=== PATIENT | male | born 1940 | race Asian ===

== ENCOUNTER 2018-06-24 19:24 | Inpatient (IN) | payer OTHER ==
[~2018-06-24] VITALS: Ht 162.6 cm; Wt 63.5 kg
--- NOTE | 2018-06-24 19:27 | NUR ---
PT VENECIA ALS. TAKEN TO BED 10
--- NOTE | 2018-06-24 19:27 | NUR ---
Respiratory Therapist at bedside for respiratory intervention.
[2018-06-24 19:35] VITALS: BP 107/69
[2018-06-24 19:40] VITALS: BP 107/69
--- NOTE | 2018-06-24 19:45 | NUR ---
BIBA WITH C/O FALL FROM BED AT 4AM. PATIENT CHRONIC TRACH TO VENT. PATEINT NON VERBAL, RESPONSIVE TO PAIN, SPONTANEOUS EYE OPENING. SENT BY CEC TO RULE OUT BRAIN BLEED. 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
--- NOTE | 2018-06-24 19:47 | NUR ---
PT TAKEN TO CT WITH RN, WELDER/FABRICATOR, AND RT
--- NOTE | 2018-06-24 19:50 | NUR ---
PT VENECIA STARTED ON VENTILATOR SETTING FROM HIS FACILITY AC/14/450/30%/+5. AT [address] WITH NO INCIDENT AND AT 1949 TRANSFERRED BACK TO ER BED 10 WITHOUT INCIDENT. VENTILATOR PLUGGED INTO RED OUTLETS BVM AT BEDSIDE AIRWAY SHILEY 6XLT SECURE AND PATENT.
--- NOTE | 2018-06-24 19:59 | NUR ---
PT RETURN FROM CT
[2018-06-24] MEDS ORDERED: NACL 0.9% 1,000 ML IV ONE (20:00)
--- NOTE | 2018-06-24 20:04 | NUR ---
X-Ray at bedside.
[2018-06-24 20:42] LABS: BASOPHILS % (AUTO) 0.4 % (0.0-2.0); EOSINOPHILS # (AUTO) 0.1 K/uL (0-0.4); EOSINOPHILS % (AUTO) 1.3 % (0.0-4.0); HEMATOCRIT 28.3 % (36-52); HEMOGLOBIN 9.3 g/dL (12.0-18.0); LYMPHOCYTES # (AUTO) 1.4 K/uL (2.0-11.5); LYMPHOCYTES % (AUTO) 20.8 % (20.5-51.1); MEAN CORPUSCULAR HEMOGLOBIN 27 pg (27-31); MEAN CORPUSCULAR HGB CONC 33 g/dL (33-37); MEAN CORPUSCULAR VOLUME 83.4 fL (80-94); MONOCYTES # (AUTO) 0.5 K/uL (0.8-1.0); MONOCYTES % (AUTO) 7.8 % (1.7-9.3); NEUTROPHILS # (AUTO) 4.6 K/uL (1.8-7.7); NEUTROPHILS % (AUTO) 69.7 % (42.2-75.2); PLATELET COUNT (AUTO) 260 K/uL (140-450); RED CELL DISTRIBUTION WIDTH 14.4 % (11.6-13.7); WHITE BLOOD COUNT (AUTO) 6.6 K/uL (4.8-10.8)
[2018-06-24 20:44] LABS: APPEARANCE,URINE CLEAR (CLEAR); BILIRUBIN,URINE NEGATIVE (NEGATIVE); BLOOD, URINE NEGATIVE (NEGATIVE); COLOR,URINE YELLOW (YELLOW); LEUKOCYTE ESTERASE ,URINE 3+ (NEGATIVE); NITRITE, URINE POSITIVE (NEGATIVE); PH,URINE 8.5 (5.0-9.0); UGLUCOSE NEGATIVE (NEGATIVE)
[2018-06-24 20:55] LABS: RBC,URINE 0-5 /HPF (0-5); WBC,URINE >25 (MANY) /HPF (0-5)
[2018-06-24] MEDS ORDERED: LEVOFLOXACIN 500 MG/D5W PREMIX 100 ML IV ONE (20:55)
[2018-06-24] MEDS ORDERED: PIPERACILLIN/TAZOBACTAM 3.375 GM in DEXTROSE 5% 50 ML IV ONE (20:55)
[2018-06-24 21:01] LABS: ALBUMIN 2.6 g/dL (3.4-5.0); ANION GAP 7.2 (8-16); ASPARTATE AMINOTRANSFERASE 27 U/L (15-37); CARBON DIOXIDE 27.3 mmol/L (21-32); CHLORIDE 91 mmol/L (98-107); GLUCOSE 83 mg/dL (74-106); POTASSIUM 5.5 mmol/L (3.5-5.1); TOTAL BILIRUBIN 0.3 mg/dL (0.0-1.0); UREA NITROGEN, BLOOD 35 mg/dL (7-18)
[2018-06-24 21:03] LABS: PROTHROMBIN TIME 10.3 secs (10.8-13.4)
--- NOTE | 2018-06-24 21:07 | NUR ---
Dr. Cole evaluating patient at bedside.
--- NOTE | 2018-06-24 21:08 | NUR ---
SON AND DAUGHTER AT BEDSIDE. DR BRUNO SPEAKING WITH THEM
[2018-06-24 21:12] LABS: SODIUM SERUM 120 mmol/L (136-145)
[2018-06-24] MEDS ORDERED: PIPERACILLIN/TAZOBACTAM 3.375 GM VIAL IV ONE (21:13)
[2018-06-24] MEDS ORDERED: NACL 0.9% 1,500 ML IV ONE (21:15)
[2018-06-24] MEDS ORDERED: IPRATROPIUM 0.02% 0.5 MG/2.5 ML NEBU INH PRN (21:55)
[2018-06-24] MEDS ORDERED: MORPHINE SULFATE 2 MG/ML SYR IVP PRN (21:55)
[2018-06-24] MEDS ORDERED: MAGNESIUM OXIDE 400 MG TAB PO PRN (21:55)
[2018-06-24] MEDS ORDERED: ONDANSETRON 4 MG/2 ML VIAL IVP PRN (21:55)
[2018-06-24] MEDS ORDERED: ALBUTEROL 0.083% 2.5 MG/3 ML NEBU INH PRN (21:55)
[2018-06-24] MEDS ORDERED: ACETAMINOPHEN 325 MG TAB PO PRN (21:55)
[2018-06-24] MEDS ORDERED: POTASSIUM CHLORIDE 10 MEQ TABER PO PRN (21:55)
[2018-06-24] MEDS ORDERED: ACETAMINOPHEN 650 MG SUPP RC PRN (21:55)
[2018-06-24] MEDS ORDERED: POTASSIUM CHLORIDE 40 MEQ, LIDOCAINE 1% 25 MG in NACL 0.9% 250 ML IV PRN (21:55)
[2018-06-24] MEDS ORDERED: MAG SULF 2000 MG/WATER PREMIX 50 ML IV PRN (21:55)
[2018-06-24 22:00] VITALS: BP 144/98
--- NOTE | 2018-06-24 22:00 | NUR ---
RECEIVED PT FROM ER VIA GURNEY.TRANSFERRED TO ICU BED 8.MONITORS ATTACHED.NSR ON MONITOR.PT OPENS EYES.NOT TRACKING.DOES NOT FOLLOW COMMANDS.TRACH TO VENT FIO3 30% TV 450 AC 14 PEEP 5.INTERMITTENT PRODUCTIVE COUGHING NOTED.MODERATE AMT OF CLEAR THICK SECRETIONS SUCTIONED.WITH GTUBE ALREADY IN PLACE.FLUSHED.CLAMPED.PERIPHERAL IV TO LT F/A G20 INTACT INFUSING NS AT 100ML/HR FROM ER AND LEVAQUIN.ALL EXTREMITIES WITH ABNORMAL FLEXION NOTED.OLD SCAR TO SACROCOCCYGEAL AND RT HEEL ALSO NOTED.WITH TOLENTINO CATHETER TO BSD DRAINING YELLOW URINE WITH SEDIMENTS.FLACC 0
--- NOTE | 2018-06-24 22:05 | NUR ---
PT TRANSPORTED TO ICU BED 8 WITHOUT INCIDENT. VENT PLUGGED INTO RED OUTLET BVM AT BEDSIDE ALARMS SET AND AUDIBLE.
--- NOTE | 2018-06-24 22:05 | NUR ---
PATEINT TAKEN IN [facility] ESCORTED BY EMT, RN, AND RT. STABLE DURING TRANSFER. TAKEN TO ICU-8, UNDER CARE OF DR. VELASQUEZ. REPORT GIVEN TO KAYLA.
--- NOTE | 2018-06-24 22:40 | NUR ---
PHONE CALL TO PTS MARCOS ARMAS; UPDATED ON PTS PRESENT CONDITION.CLARIFIED CODE STATUS.PT HAS POLST DNR BUT ON REPORT FROM ER NURSE CALLI, ITS MODIFIED CODE.CELINE ARMAS SAID PT IS DNR.
[2018-06-24] MEDS: DEXT 5% / NACL 0.45% 1,000 ML IV SCH (23:00)
--- NOTE | 2018-06-24 23:00 | NUR ---
IVF CHANGED TO D5 /12NS AT [address] HONG.
[2018-06-24 23:21] VITALS: BP 127/75
[2018-06-25] VITALS (24 sets, daily range): BP systolic 114–217; BP diastolic 76–113
--- NOTE | 2018-06-25 | NUR ---
ORAL CARE USING VAP KIT RENDERED.WILL F/U WITH MD PAYNE;DVT AND GI PROPHYLAXIS IN AM. PT AWAKE.NSR.SECRETIONS SUCTIONED.ABLE TO SUCTION THICK CLEAR SECRETIONS. PER TRACH/ORAL.FLACC 0.REPOSITIONED.
[2018-06-25] MEDS ORDERED: PIPERACILLIN/TAZOBACTAM 3.375 GM VIAL IV ONE (02:15)
--- NOTE | 2018-06-25 03:03 | NUR ---
PT APPEARS ASLEEP; TOLENTINO CATHETER INTACT WITH YELLOW URINE WITH SEDIMENTS.IV ANTIBIOTIC FOR UTI ORDERED/GIVEN.FLACC 0
[2018-06-25] MEDS: PIPER/TAZO 3.375GM/D5W PREMIX 50 ML IV SCH ×3 (05:00→20:50)
--- NOTE | 2018-06-25 05:36 | NUR ---
MORNING CARE DONE.ORAL CARE COMPLETED.PT TOLERATING ADL'S.NO SOB NOTED.FLACC 0.REPOSITIONED.
--- NOTE | 2018-06-25 05:51 | NUR ---
BS CHECKED 88
[2018-06-25 06:35] LABS: ALBUMIN 2.7 g/dL (3.4-5.0); ANION GAP 10.6 (8-16); ASPARTATE AMINOTRANSFERASE 31 U/L (15-37); BASOPHILS % (AUTO) 0.5 % (0.0-2.0); CARBON DIOXIDE 25.8 mmol/L (21-32); CHLORIDE 92 mmol/L (98-107); CREATININE 1.1 mg/dL (0.7-1.3); EOSINOPHILS # (AUTO) 0.1 K/uL (0-0.4); EOSINOPHILS % (AUTO) 1.1 % (0.0-4.0); GLUCOSE 92 mg/dL (74-106); HEMATOCRIT 29.2 % (36-52); HEMOGLOBIN 9.7 g/dL (12.0-18.0); LYMPHOCYTES # (AUTO) 1.9 K/uL (2.0-11.5); LYMPHOCYTES % (AUTO) 25.8 % (20.5-51.1); MEAN CORPUSCULAR HEMOGLOBIN 28 pg (27-31); MEAN CORPUSCULAR HGB CONC 33 g/dL (33-37); MEAN CORPUSCULAR VOLUME 83.8 fL (80-94); MONOCYTES # (AUTO) 0.6 K/uL (0.8-1.0); MONOCYTES % (AUTO) 8.1 % (1.7-9.3); NEUTROPHILS # (AUTO) 4.9 K/uL (1.8-7.7); NEUTROPHILS % (AUTO) 64.5 % (42.2-75.2); PLATELET COUNT (AUTO) 266 K/uL (140-450); POTASSIUM 5.4 mmol/L (3.5-5.1); RED BLOOD CELL COUNT(AUTO) 3.49 MIL/uL (4.20-6.10); RED CELL DISTRIBUTION WIDTH 14.8 % (11.6-13.7); SODIUM SERUM 123 mmol/L (136-145); TOTAL BILIRUBIN 0.4 mg/dL (0.0-1.0); UREA NITROGEN, BLOOD 32 mg/dL (7-18); WHITE BLOOD COUNT (AUTO) 7.5 K/uL (4.8-10.8)
--- NOTE | 2018-06-25 07:27 | NUR ---
report given to Isadora GARZA and Titi GARZA for continuity of care.
--- NOTE | 2018-06-25 07:34 | NUR ---
FOUND PT SLEEPING WITH VENT SETTINGS OF A/C: 14, VT:450, FIO2: 30%, PEEP +5 WITH TRACH SIZE OF SHILEY 6XLT. PT WAS COMFORTABLE ON CURRENT VENT SETTINGS, ALARMS WERE ON & AUDIBLE. AMBU BAG AT BEDSIDE & VENT WASS CONNECTED TO RED OUTLET. WILL CONTINUE TO MONITOR
--- NOTE | 2018-06-25 08:00 | NUR ---
RECEIVED PATIENT ON BED.TRACHE TO VENT WITH VENT SETTING FOLLOWS : AC=14,PEEP=5,HM=502.FIO2=30 PERCENT.PT IS NOT IN ANY CARDIORESPIRATORY DISTRESS.GTUBE CLAMPED.AWAITING FOR MD TO MAKE ROUNDS AND ORDER.TOLENTINO TO GRAVITY WITH YELLOW URINE OUTPUT.NSR ON THE MONITOR LEFT FOREARM IV WITH D5 0.45 NS AT 125 ML/H/.WILL MONITOR.
--- NOTE | 2018-06-25 08:24 | NUR ---
PATIENT HAS BEEN SCREENED AND CATEGORIZED HIGH NUTRITION RISK. PATIENT WILL BE SEEN WITHIN 1-2 DAYS OF ADMISSION. 06/25/18-06/26/[address]
[2018-06-25] MEDS: DEXT 5% / NACL 0.45% 1,000 ML IV SCH (08:55)
[2018-06-25] MEDS ORDERED: PRON INH ×2 (09:25)
[2018-06-25] MEDS ORDERED: CRAN450C GT (09:25)
[2018-06-25] MEDS ORDERED: ROPI4TAB GT (09:25)
[2018-06-25] MEDS ORDERED: SODI100076 GT (09:25)
[2018-06-25] MEDS ORDERED: BENZ2TAB27 GT (09:25)
[2018-06-25] MEDS ORDERED: HUM SUBQ (09:25)
[2018-06-25] MEDS ORDERED: DOCU-299 GT (09:25)
[2018-06-25] MEDS ORDERED: CLON0.1T42 GT (09:25)
[2018-06-25] MEDS ORDERED: HEPA500056 SQ (09:25)
[2018-06-25] MEDS ORDERED: HYDR100T79 PO (09:25)
[2018-06-25] MEDS ORDERED: CARB1TER4 GT (09:25)
--- NOTE | 2018-06-25 11:40 | NUR ---
SCREEN FOR LOW SCOTTY SCALE AT RISK, NO REDNESS NOTICE, PRESSURE INJURY PREVENTION INTERVENTIONS IN PLACE. -TURN AND REPOSITION PATIENT Q 2H OFFLOAD LEFT AND RIGHT HIPS -ASSESS AND MONITOR SKIN CONDITION DURING POSITION CHANGE, PLEASE PAY ATTENTION TO FEET AND HEELS -OFFLOAD BILATERAL HEELS BY PLACING PILLOWS UNDER CALVES AT ALL TIMES, UNLESS OTHERWISE CONTRAINDICATED -PRESSURE REDISTRIBUTION SURFACE THERAPY -KEEP SKIN CLEAN AND DRY AT ALL TIMES.
--- NOTE | 2018-06-25 11:48 | NUR ---
PT SOUNDED COURSE. SUCTIONED A SMALL AMOUNT OF FROTHY WHITE SECRETIONS.
--- NOTE | 2018-06-25 11:52 | NUR ---
06/25/18 RD INITIAL ASSESSMENT COMPLETED PLEASE REFER TO NUTRITION ASSESSMENT UNDER CARE ACTIVITY FOR ESTIMATED NUTRITIONAL NEEDS. 1. RECOMMEND VITAL AT 60 ML/HR, START AT 20 ML/HR AND INCREASE BY 20 ML/HR -THIS WILL PROVIDE 1440 ML OF VOLUME, 1728 KCAL AND 79 GM OF PROTEIN WHICH MEETS 100% OF ESTIMATED NUTRIENT NEEDS 2. RECOMMEND 95 ML Q4H OF FREE WATER FLUSH 3. RD TO FOLLOW-UP 2-3 DAYS, HIGH RISK MERLY SALCEDO, RD
[2018-06-25] MEDS ORDERED: PANTOPRAZOLE 40 MG INJ VIAL IVP SCH (14:55)
--- NOTE | 2018-06-25 15:00 | NUR ---
bilateral boots on
--- NOTE | 2018-06-25 15:08 | NUR ---
SUCTIONED PT'S MOUTH ONLY. ONLY VERY SMALL AMOUNTS OF SECRETIONS ARE SUCTIONED OUT FROM TRACH
[2018-06-25] MEDS ORDERED: PATIROMER CALCIUM SORBITEX 8.4 GM PKT PO SCH ×2 (15:15)
[2018-06-25] MEDS: NACL 0.9% 1,000 ML IV SCH ×2 (15:43→22:30)
--- NOTE | 2018-06-25 16:20 | NUR ---
TOLENTINO REMOVED ORDERED BY DR HONG.PER DR HONG NO NEED FOR UA AND URINE CULTURE.
--- NOTE | 2018-06-25 16:25 | NUR ---
TOLENTINO ISRAELI 16 INSERTED WITH ASEPTIC TECHNIQUE.PT TOLERATED WELL.
--- NOTE | 2018-06-25 17:21 | NUR ---
AWAITING FOR FEEDING TUBE TO BE DELIVERED.
--- NOTE | 2018-06-25 17:52 | NUR ---
SUCTIONED A SMALL AMOUNT OF FROTHY SECRETIONS. AIRWAY WAS PATENT & TRACH LEFT SECURED.
--- NOTE | 2018-06-25 18:35 | NUR ---
Melissa-daughter and son nancy were here stating that they want their dad to return to [facility] [place] when discharge from hospital.Also per family pt is chemical code meaning no cpr but still wanted drugs to be given during code.refractory furnace designer aware
--- NOTE | 2018-06-25 18:41 | NUR ---
Dr. Billy notified of pt's family's clarification of the code status. They want ACLS drugs to be administered. Vasopressors are also ok to be adm. if needed. Code status changed to modified code.
--- NOTE | 2018-06-25 19:30 | NUR ---
report given to france prasad.
--- NOTE | 2018-06-25 19:30 | NUR ---
RECEIVED BEDSIDE REPORT FROM DAY SHIFT RN. PT IS AFEBRILE. FLACC 0. PT DOES NOT FOLLOW SIMPLE COMMANDS OR MAKE NEEDS KNOWN. TRACH TO VENT W/ SETTINGS: A/C VC FIO2 30%, VT 450, RR 14, PEEP 5. BREATHING EVEN AND UNLABORED. LUNGS SOUND CLEAR BILATERALLY, DIMINISHED LOWER LOBES. G-TUBE IN PLACE, RECEIVING TUBE FEEDING VITAL AT 20 ML/HR (GOAL 60 ML/HR), NO RESIDUALS NOTED AT THIS TIME. ABDOMEN SOFT, NONTENDER, NONDISTENDED WITH ACTIVE BOWEL SOUNDS X 4 QUADRANTS. PT HAS PERIPHERAL IV G20 TO LEFT FOREARM ASYMPTOMATIC, PATENT, INTACT, RUNNING IV FLUID NS AT 125 ML/HR. TOLENTINO CATH IN PLACE DRAINING URINE TO GRAVITY DRAINAGE BAG. PULSES PALPABLE TO ALL EXTREMITIES. SKIN IS INTACT, DRY AND WARM TO TOUCH. SCDS AND HEEL PROTECTORS IN PLACE TO BLE. REPOSITIONED FOR COMFORT. NO SIGNS OF DISTRESS NOTED AT THIS TIME. HOB 30 DEGREES, BED IN LOWEST POSITION AND CALL LIGHT WITHIN REACH. WILL CONTINUE TO MONITOR. Addendum: 06/25/18 at 2229 by Ilana Monson RN SINUS RHYTHM W/ 1ST DEGREE HB AND BBB ON MONITOR
[2018-06-25] MEDS: cloNIDine 0.1 MG TAB GT PRN (19:35)
[2018-06-25] MEDS: SODIUM CHLORIDE 1 GM TAB GT SCH (20:50)
[2018-06-25] MEDS: DOCUSATE SODIUM 100 MG GELCAP PO SCH (20:50)
[2018-06-25] MEDS: BENZTROPINE 1 MG TAB GT SCH (20:50)
[2018-06-25] MEDS: rOPINIRole 1 MG TAB GT SCH (20:52)
--- NOTE | 2018-06-25 21:00 | NUR ---
MEDICATIONS ADMINISTERED ORDERED. PT TOLERATED WELL.
--- NOTE | 2018-06-25 21:15 | NUR ---
REASSESSED BLOOD PRESSURE AFTER PRN CLONIDINE GIVEN. BP 171/97 AT THIS TIME. ON-CALL PHYSICIAN DR. WEST MADE AWARE. ORDERS RECEIVED. WILL CONTINUE TO MONITOR.
[2018-06-25] MEDS ORDERED: INSULIN LISPRO SLIDING SCALE 100 UNITS/ML VIAL SUBQ PRN (21:25)
[2018-06-25] MEDS ORDERED: hydrALAZINE 25 MG TAB GT SCH (22:00)
--- NOTE | 2018-06-25 22:15 | NUR ---
BP 151/91 HR 75, NO S/SX OF ACUTE DISTRESS NOTED AT THIS TIME. WILL CONTINUE TO MONITOR.
[2018-06-26] VITALS (21 sets, daily range): BP systolic 115–170; BP diastolic 60–88
--- NOTE | 2018-06-26 00:05 | NUR ---
VAP ORAL CARE GIVEN. REPOSITIONED FOR COMFORT AND OFF LOADING PRESSURE AREAS. PT TOLERATED WELL. VSS.
[2018-06-26] MEDS: hydrALAZINE 25 MG TAB GT SCH ×4 (00:07→18:09)
[2018-06-26] MEDS: NACL 0.9% 1,000 ML IV SCH ×2 (00:29→17:24)
--- NOTE | 2018-06-26 02:10 | NUR ---
NO CHANGE IN CONDITION AT THIS TIME. BP 125/72 HR 66. PT IS NOT IN ANY DISTRESS AT THIS TIME. SAFETY PRECAUTIONS IN PLACE. WILL CONTINUE TO MONITOR.
--- NOTE | 2018-06-26 04:00 | NUR ---
VAP ORAL CARE GIVEN. REPOSITIONED FOR COMFORT AND OFF LOADING. VSS. ALL SAFETY PRECAUTIONS IN PLACE. WILL CONTINUE TO MONITOR.
[2018-06-26] MEDS: PIPER/TAZO 3.375GM/D5W PREMIX 50 ML IV SCH ×3 (04:04→20:13)
[2018-06-26] MEDS: SODIUM CHLORIDE 1 GM TAB GT SCH ×3 (04:05→20:12)
[2018-06-26] MEDS: rOPINIRole 1 MG TAB GT SCH ×3 (04:05→20:12)
[2018-06-26] MEDS: BENZTROPINE 1 MG TAB GT SCH ×3 (04:05→20:12)
[2018-06-26] MEDS: BLOOD GLUCOSE MONITORING 1 DEV DEV FS SCH ×5 (06:00→23:35)
--- NOTE | 2018-06-26 06:00 | NUR ---
TURNED AND REPOSITIONED FOR COMFORT. NO S/SX OF DISTRESS NOTED. PT TOLERATED WELL. VSS.
--- NOTE | 2018-06-26 06:58 | NUR ---
RECEIVED PT ON DOCUMENTED SETTINGS ON CARESCAPE, ALARMS ARE ON AND AUDIBLE, PTS TRACH SHILEY 6 XLT IS SECURE, PT IN HF ASLEEP NO SOB NOTED, VENT PLUGGED INTO RED OUTLET , BMV HOB
--- NOTE | 2018-06-26 07:19 | NUR ---
RECEIVED BEDSIDE REPORT FROM TAX SERVICES PROFESSIONAL RN, NORBERT, FOR CONTINUITY OF CARE. PATIENT IS AWAKE, OPENS EYES SPONTANEOUSLY, UNABLE TO FOLLOW COMMANDS OR MAKE NEEDS KNOWN. PATIENT SKIN IS WARM, DRY, INTACT. PATIENT HAS PERIPHERAL IV SITE TO LFA, 20 GAUGE, ASYMPTOMATIC AND PATENT. PATIENT IS TRACH TO VENT, SETTINGS ARE AC RATE 14, FIO2 30, TV 450, PEEP 5. BREATHING IS EVEN AND UNLABORED. PATIENT IS SR WITH BBB, FLACC 0. PATIENT HAS GTUBE IN PLACE TO TUBE FEEDING, VITAL AF 1.2 AT 40 ML/HR WITH 95 H20 FLUSH Q4H. PATIENT HAS TOLENTINO CATHETER IN PLACE TO CLEAR YELLOW URINE. HOB IS 30 DEGREES, BED LOCKED, SIDE RAILS UP. SAFETY PRECAUTIONS AND ALARMS ASSESSED AND ENFORCED. NO SIGNS OF DISTRESS NOTED. WILL CONTINUE TO MONITOR.
--- NOTE | 2018-06-26 07:20 | NUR ---
REPORT GIVEN TO MILLINERY DEPARTMENT MANAGER RN FOR CONTINUITY OF CARE. PT IS IN STABLE CONDITION.
--- NOTE | 2018-06-26 07:56 | NUR ---
PATIENT TURNED AND REPOSITIONED, ORAL CARE PROVIDED. NO SIGNS OF DISTRESS AT THIS TIME. WILL CONTINUE TO MONITOR
[2018-06-26 08:19] LABS: BASOPHILS % (AUTO) 0.5 % (0.0-2.0); EOSINOPHILS % (AUTO) 0.6 % (0.0-4.0); HEMATOCRIT 25.8 % (36-52); HEMOGLOBIN 8.7 g/dL (12.0-18.0); LYMPHOCYTES # (AUTO) 1.6 K/uL (2.0-11.5); MEAN CORPUSCULAR HEMOGLOBIN 28 pg (27-31); MEAN CORPUSCULAR HGB CONC 34 g/dL (33-37); MEAN CORPUSCULAR VOLUME 83.6 fL (80-94); MONOCYTES # (AUTO) 0.5 K/uL (0.8-1.0); MONOCYTES % (AUTO) 7.4 % (1.7-9.3); NEUTROPHILS # (AUTO) 4.4 K/uL (1.8-7.7); NEUTROPHILS % (AUTO) 66.5 % (42.2-75.2); PLATELET COUNT (AUTO) 219 K/uL (140-450); RED BLOOD CELL COUNT(AUTO) 3.08 MIL/uL (4.20-6.10); WHITE BLOOD COUNT (AUTO) 6.6 K/uL (4.8-10.8)
[2018-06-26 08:33] LABS: ALBUMIN 2.3 g/dL (3.4-5.0); ANION GAP 12.7 (8-16); ASPARTATE AMINOTRANSFERASE 26 U/L (15-37); CARBON DIOXIDE 22.2 mmol/L (21-32); CHLORIDE 94 mmol/L (98-107); GLUCOSE 82 mg/dL (74-106); POTASSIUM 3.9 mmol/L (3.5-5.1); SODIUM SERUM 125 mmol/L (136-145); TOTAL BILIRUBIN 0.3 mg/dL (0.0-1.0); UREA NITROGEN, BLOOD 24 mg/dL (7-18)
[2018-06-26] MEDS: DOCUSATE SODIUM 100 MG GELCAP PO SCH ×2 (09:46→20:13)
[2018-06-26] MEDS: PANTOPRAZOLE 40 MG INJ VIAL IVP SCH (09:46)
--- NOTE | 2018-06-26 09:58 | NUR ---
DR. LOCKWOOD IS HERE TO SEE PATIENT, WILL FOLLOW UP ON ANY ORDERS
--- NOTE | 2018-06-26 11:43 | NUR ---
PATIENT TURNED AND REPOSITIONED FOR COMFORT, TOLERATED WELL.
--- NOTE | 2018-06-26 13:16 | NUR ---
PATIENT HAS TEMP OF 101, WILL ADMINISTER PRN TYLENOL 650 MG PO.
--- NOTE | 2018-06-26 13:53 | NUR ---
PATIENT TURNED AND REPOSITIONED, ORAL CARE PROVIDED, PATIENT TOLERATED WELL.
--- NOTE | 2018-06-26 14:29 | NUR ---
TOLENTINO CATHETER CARE PROVIDED, PATIENT TOLERATED WELL. NO SIGNS OF DISTRESS NOTED. WILL CONTINUE TO MONITOR
--- NOTE | 2018-06-26 15:10 | NUR ---
CALLED DR. LOCKWOOD, AWARE THAT PATIENT'S CA IS 8.2 AND ALBUMIN 2.3, NO ORDERS RECEIVED. STATES THAT PATIENT CAN BE DOWNGRADED TO TELE.
--- NOTE | 2018-06-26 15:12 | NUR ---
PATIENT'S FAMILY AT BEDSIDE.
--- NOTE | 2018-06-26 16:17 | NUR ---
ORAL CARE PROVIDED, PATIENT TURNED AND REPOSITIONED. PATIENT TOLERATED WELL.
--- NOTE | 2018-06-26 18:17 | NUR ---
PATIENT HAD 1 SMALL SOFT BROWN BM, PATIENT CLEANED AND REPOSITIONED. TOLERATED WELL.
--- NOTE | 2018-06-26 19:05 | NUR ---
ENDORSED CONTINUITY OF CARE TO CAR CHECKER RNSURYA. NO SIGNS OF DISTRESS AT THIS TIME.
--- NOTE | 2018-06-26 19:30 | NUR ---
RECEIVED REPORT FROM MORNING RN, JUICE, FOR CONTINUITY OF CARE. VS STABLE AT THIS TIME. PT AFEBRILE. FLACC 0. DOES NOT APPEAR TO BE EXPERIENCING ANY DISCOMFORT AT THIS TIME. PERRL. LUNG SOUNDS AUSCULTATED. RHONCHI HEARD. TRACH TO VENT WITH SETTINGS: AC14, FIO2 30%, TV 450 AND PEEP 5. RESPIRATIONS ARE EVEN AND UNLABORED. S1+S2 HEARD. PULSES ARE PALPABLE IN ALL EXTREMITIES. SR WITH 1ST DEGREE HB ON MONITOR. ABDOMEN ROUND, SOFT AND NONDISTENDED. BS ACTIVE IN ALL QUADRANTS. GTUBE IN PLACE. DRESSING INTACT. RESIDUAL 70ML. VITAL AF RUNNING AT 60ML/HR WITH WATER FLUSH OF 95ML Q4H. TOLENTINO CATHETER IN PLACE, DRAINING CLEAR AND YELLOW URINE. PT HAS LEFT FOREARM PERIPHERAL IV ACCESS THAT IS CLEAN, DRY AND INTACT. PT HAS NS RUNNING AT 75ML/HR. HOB AT 30 DEGREES. ALL SAFETY PRECAUTIONS ARE IN PLACE. WILL CONTINUE TO MONITOR PT.
--- NOTE | 2018-06-26 22:17 | NUR ---
NO CHANGE IN PT'S CONDITION AT THIS TIME. PT TURNED AND REPOSITIONED. TOLERATED WELL. NO BM NOTED AT THIS TIME. FLACC 0. PT DOES NOT APPEAR TO BE EXPERIENCING ANY DISCOMFORT AT THIS TIME. RESPIRATIONS ARE EVEN AND UNLABORED. IV SITE ASYMPTOMATIC AND INTACT. ALL SAFETY PRECAUTIONS ARE IN PLACE. WILL CONTINUE TO MONITOR PT.
--- NOTE | 2018-06-26 23:15 | NUR ---
RECEIVED CALL FROM LAB THAT PT IS POSITIVE FOR MRSA NARES. WILL NOTIFY THE ATTENDING
--- NOTE | 2018-06-26 23:37 | NUR ---
RECEIVED NEW ORDERS FROM DR. LOCKWOOD FOR THE POSITIVE MRSA NARES RESULT.
[2018-06-27] VITALS (18 sets, daily range): BP systolic 137–170; BP diastolic 65–99
[2018-06-27] MEDS: NACL 0.9% 1,000 ML IV SCH ×2 (00:15→20:04)
[2018-06-27] MEDS: hydrALAZINE 25 MG TAB GT SCH ×4 (00:20→18:10)
--- NOTE | 2018-06-27 00:46 | NUR ---
PT'S EYES ARE CLOSED. DOES NOT APPEAR TO BE EXPERIENCING ANY DISCOMFORT. FLACC 0. RESPIRATIONS ARE EVEN AND UNLABORED. PT'S BP STARTING TO BE ELEVATED. HYDRALAZINE SCHEDULED WAS ADMINISTERED. CURRENT SBP IS 158; WILL CONTINUE TO MONITOR AND WILL GIVE PRN BP MEDS NEEDED.
[2018-06-27] MEDS: cloNIDine 0.1 MG TAB GT PRN ×3 (01:55→21:24)
--- NOTE | 2018-06-27 02:45 | NUR ---
EYES ARE CLOSED. RESPIRATIONS ARE EVEN AND UNLABORED. FLACC 0. PT DOES NOT APPEAR TO BE EXPERIENCING ANY DISCOMFORT AT THIS TIME. ALL SAFETY PRECAUTIONS REMAIN IN PLACE. WILL CONTINUE TO MONITOR PT.
--- NOTE | 2018-06-27 04:30 | NUR ---
PM CARE PROVIDED TO PT. PT TOLERATED TO BE REPOSITIONED WELL. NO CHANGED IN PT'S STATUS AT THIS TIME. VS REMAINS STABLE. KEPT ALL SAFETY PRECAUTIONS IN PLACE. HOB AT 30 DEGREES. BED AT THE LOWEST POSSIBLE POSITION. WILL CONTINUE TO MONITOR PT.
--- NOTE | 2018-06-27 04:48 | NUR ---
PT NOTED TO HAVE RED TINGED URINE IN COLLECTION BAG OF TOLENTINO CATHETER ALONG WITH BLEEDING FROM THE INSERTION SITE. WILL HOLD HEPARIN AT THIS TIME. WILL OBSERVE FOR FURTHER BLEEDING FROM TOLENTINO CATHETER AND RED-TINGED URINE. WILL CONTINUE TO MONITOR PT.
[2018-06-27] MEDS: PIPER/TAZO 3.375GM/D5W PREMIX 50 ML IV SCH ×3 (04:50→21:22)
[2018-06-27] MEDS: BENZTROPINE 1 MG TAB GT SCH ×3 (04:51→21:22)
[2018-06-27] MEDS: rOPINIRole 1 MG TAB GT SCH ×3 (04:51→21:22)
[2018-06-27] MEDS: SODIUM CHLORIDE 1 GM TAB GT SCH ×3 (04:51→21:22)
--- NOTE | 2018-06-27 06:25 | NUR ---
rec'd pt on carescape vent settings ac14 vt 450 peep 5 fio2 30% alarms on and audible and ambu bag is at side of vent and vent is plugged into red outlet, no hhn needed at this time no signs of distress noted, b\s are coarse bilaterally, sxn pt small amt of clear secretions, pt is trach with shiley 6 xlt and skin integrity is intact, pt is resting with no signs of distress noted
[2018-06-27] MEDS: BLOOD GLUCOSE MONITORING 1 DEV DEV FS SCH ×4 (06:29→23:58)
--- NOTE | 2018-06-27 07:11 | NUR ---
RECEIVED BEDSIDE REPORT FROM COARSE WIRE DRAWER RN, SURYA, FOR CONTINUITY OF CARE. PATIENT OPENS EYES SPONTANEOUSLY, UNABLE TO MAKE NEEDS KNOWN OR FOLLOWS COMMANDS. SKIN IS WARM, DRY, AFEBRILE AND INTACT. HE HAS A PERIPHERAL IV SITE TO LFA, 20 GAUGE, ASYMPTOMATIC AND PATENT. PATIENT IS TRACH TO VENT, SETTING IS AC 14, FIO2 30, TV450, PEEP 5. BREATHING EVEN AND UNLABORED. PATIENT IS 2ND DEGREE HB, FLACC 0. PATIENT HAS GTUBE IN LUQ TO TUBE FEEDING. PATIENT HAS TOLENTINO CATHETER IN PLACE WITH LIGHT BLOOD TINGED URINE. HOB IS 30 DEGREES, BED LOCKED, SIDE RAILS UP. SAFETY PRECAUTIONS AND ALARMS ASSESSED AND ENFORCED. NO SIGNS OF DISTRESS AT THIS TIME, WILL CONTINUE TO MONITOR.
--- NOTE | 2018-06-27 07:16 | NUR ---
REPORT GIVEN TO MORNING RN, JUICE, FOR CONTINUITY OF CARE. VS STABLE AT THIS TIME.
[2018-06-27 08:21] LABS: ANION GAP 12.7 (8-16); CARBON DIOXIDE 22.2 mmol/L (21-32); CHLORIDE 100 mmol/L (98-107); GLUCOSE 81 mg/dL (74-106); POTASSIUM 3.9 mmol/L (3.5-5.1); SODIUM SERUM 131 mmol/L (136-145); UREA NITROGEN, BLOOD 23 mg/dL (7-18)
--- NOTE | 2018-06-27 08:37 | NUR ---
PATIENT TURNED AND REPOSITIONED, ORAL CARE PROVIDED, PATIENT TOLERATED WELL.
[2018-06-27] MEDS: CHLORHEXADINE GLUC 2% CLOTH TP SCH (09:28)
[2018-06-27] MEDS: PANTOPRAZOLE 40 MG INJ VIAL IVP SCH (09:28)
[2018-06-27] MEDS: MUPIROCIN CA NASAL 2% 1GM TUBE NS SCH (09:28)
[2018-06-27] MEDS: DOCUSATE SODIUM 100 MG GELCAP PO SCH ×2 (09:28→21:22)
--- NOTE | 2018-06-27 12:10 | NUR ---
DR. LOCKWOOD IN TO SEE AND EXAMINE PATIENT, UPDATED ON PATIENT'S CONDITION. WILL FOLLOW UP ON ANY ORDERS.
--- NOTE | 2018-06-27 14:58 | NUR ---
PATIENT TURNED AND REPOSITIONED, PATIENT TOLERATED WELL.
--- NOTE | 2018-06-27 19:12 | NUR ---
ENDORSED CONTINUITY OF CARE TO HOUSEHOLD APPLIANCES SALESPERSON RNEDWIN. NO SIGNS OF DISTRESS NOTED.
--- NOTE | 2018-06-27 19:20 | NUR ---
RECEIVED BEDSIDE REPORT FROM MORNING NURSE. PATIENT OPENS EYES SPONTANEOUSLY, UNABLE TO MAKE NEEDS KNOWN AND FOLLOWS COMMANDS. TRACH TO VENT WITH SETTING AC MODE FIO2 30%, VT 450, RATE 14, PEEP 5. BILATERAL LUNGS SOUND RHONCHI. NO ACUTE DISTRESS NOTED. SR WITH BBB WITH 1 DEGREE HB NOTED ON POWER GENERATION EQUIPMENT REPAIRER. PERIPHERAL IV SITE TO LEFT FOREARM0 20G WITH NS 75ML/HR NOTED. PATIENT HAS G TUBE TO TUBE FEEDING WITH VITAL AF 60ML/HR WITH WATER FLUSH 95ML Q4R NOTED, RESIDUAL CHECKED 20CC NOTED. PATIENT HAS TOLENTINO CATHETER IN PLACE WITH CLEAR YELLOW URINE NOTED. PATIENT ON CONTACT PRECAUTION FOR MRSA NARES. HOB ELEVATED 30 DEGREES, BED IN LOW POSITION, SIDE RAILS UP. WILL CONTINUE TO MONITOR.
--- NOTE | 2018-06-27 19:37 | NUR ---
Received pt stable on vent support at documented settings, suctioned small amount of thick white secretions, hhn tx given, tolerated well, no resp distress or SOB noted at this time, Shiley 6 XLT secured/patent/midline, alarms set and audible, ambu bag at bedside, vent plugged into red outlet, cont pulse ox on, will cont to monitor.
--- NOTE | 2018-06-27 21:30 | NUR ---
ADMINISTERED SCHEDULED MEDICATIONS ORDERED. NO ACUTE DISTRESS NOTED. PRN CATAPRES GIVEN FOR HYPERTENSION. WILL CONTINUE TO MONITOR.
[2018-06-28] VITALS (18 sets, daily range): BP systolic 128–179; BP diastolic 69–95
--- NOTE | 2018-06-28 00:10 | NUR ---
BS CHECKED 84 NOTED. NO ACUTE DISTRESS. TOLERATED WELL WITH VENT AND FEEDING. WILL CONTINUE TO MONITOR.
[2018-06-28] MEDS: hydrALAZINE 25 MG TAB GT SCH ×4 (01:03→19:42)
--- NOTE | 2018-06-28 02:30 | NUR ---
PATIENT IN ASLEEP AT THIS TIME, NO ACUTE DISTRESS NOTED. FLACC 0. WILL CONTINUE TO MONITOR.
[2018-06-28] MEDS: BENZTROPINE 1 MG TAB GT SCH ×3 (05:01→20:43)
[2018-06-28] MEDS: rOPINIRole 1 MG TAB GT SCH ×3 (05:01→20:43)
[2018-06-28] MEDS: PIPER/TAZO 3.375GM/D5W PREMIX 50 ML IV SCH ×3 (05:02→20:43)
[2018-06-28] MEDS: SODIUM CHLORIDE 1 GM TAB GT SCH ×3 (05:02→20:43)
--- NOTE | 2018-06-28 05:05 | NUR ---
ADMINISTERED SCHEDULED MEDICATIONS, HOLD HEPARIN SUBQ DUE TO BLEEDING FROM TOLENTINO CATH. NO ACUTE DISTRESS NOTED. FLACC 0. WILL CONTINUE TO MONITOR.
[2018-06-28 05:46] LABS: ANION GAP 11.2 (8-16); CARBON DIOXIDE 22.8 mmol/L (21-32); CHLORIDE 100 mmol/L (98-107); GLUCOSE 86 mg/dL (74-106); SODIUM SERUM 130 mmol/L (136-145); UREA NITROGEN, BLOOD 21 mg/dL (7-18)
[2018-06-28] MEDS: BLOOD GLUCOSE MONITORING 1 DEV DEV FS SCH ×4 (06:31→23:36)
--- NOTE | 2018-06-28 07:01 | NUR ---
RECEIVED PT ON CARESCAPE ON DOCUMENTED SETTINGS, ALARMS ARE ON AND AUDIBLE, PTS TRACH SHILEY 6 XLT IS SECURE PATENT, PT IN HF QUIET BS CLEAR , BMV HOB, VENT PLUGGED INTO RED OUTLET
--- NOTE | 2018-06-28 07:14 | NUR ---
RECEIVED BEDSIDE REPORT FROM TAXICAB COORDINATOR RN, EDWIN, FOR CONTINUITY OF CARE. PATIENT OPENS EYES SPONTANEOUSLY, UNABLE TO MAKE NEEDS KNOWN OR FOLLOW COMMANDS. PATIENT SKIN IS WARM , DRY, INTACT. HAS PERIPHERAL IV SITE TO LFA, 20 GAUGE, ASYMPTOMATIC AND PATENT. HE IS TRACH TO VENT, SETTINGS ARE AC 14, FIO2 30, TV 450, PEEP 5. BREATHING EVEN AND UNLABORED. PATIENT IS SR WITH BBB, FLACC 0. PATIENT HAS GTUBE IN PLACE, TOLENTINO CATHETER IN PLACE TO CLEAR YELLOW URINE. PATIENT HOB IS 30 DEGREES, SIDE RAILS UP, BED LOCKED. SAFETY PRECAUTIONS AND ALARMS ASSESSED AND ENFORCED. NO SIGNS OF DISTRESS NOTED. WILL CONTINUE TO MONITOR
[2018-06-28] MEDS: PANTOPRAZOLE 40 MG INJ VIAL IVP SCH (09:43)
[2018-06-28] MEDS: MUPIROCIN CA NASAL 2% 1GM TUBE NS SCH (09:44)
[2018-06-28] MEDS: NACL 0.9% 1,000 ML IV SCH ×2 (09:44→23:08)
[2018-06-28] MEDS: DOCUSATE SODIUM 100 MG GELCAP PO SCH ×2 (09:44→20:42)
[2018-06-28] MEDS: CHLORHEXADINE GLUC 2% CLOTH TP SCH (09:44)
--- NOTE | 2018-06-28 09:44 | NUR ---
PATIENT TURNED AND REPOSITIONED, ORAL CARE PROVIDED. NO SIGNS OF DISTRESS NOTED. WILL CONTINUE TO MONITOR.
--- NOTE | 2018-06-28 09:50 | NUR ---
SCHEDULED MEDS ADMINISTERED, PATIENT TOLERATED WELL.
--- NOTE | 2018-06-28 11:41 | NUR ---
DR. LOCKWOOD IN TO SEE AND EXAMINE PATIENT, UPDATED ON PATIENT'S CONDITION. STATES PATIENT IS OKAY TO BE DISCHARGED BACH TO SNF, SENIOR DOT NET DEVELOPER AWARE.
--- NOTE | 2018-06-28 14:25 | NUR ---
CALLED [facility] [phone] SPOKE WITH FLORESITA REGARDING PATIENT HAS DISCHARGE ORDER TODAY ,ISOLATION FOR MRSA IS COLONIZED PER FLORESITA SHE HAS NO BED AVAILABLE TODAY , BED WILL BE READY TOMORROW , NOTIFIED LISA EDWARDS
--- NOTE | 2018-06-28 14:54 | NUR ---
PATIENT TURNED AND REPOSITIONED, ORAL CARE PROVIDED. PATIENT TOLERATED WELL.
--- NOTE | 2018-06-28 15:30 | NUR ---
Changed patients vital AF feeding. Residual 150 mL and returned. Patient is tolerating well.
[2018-06-28] MEDS: cloNIDine 0.1 MG TAB GT PRN (15:35)
--- NOTE | 2018-06-28 16:16 | NUR ---
06/28/18 RD FOLLOW UP COMPLETED PLEASE REFER TO NUTRITION ASSESSMENT UNDER CARE ACTIVITY FOR ESTIMATED NUTRITIONAL NEEDS. 1.CONTINUE VITAL AT 60 ML/HR -THIS WILL PROVIDE 1440 ML OF VOLUME, 1728 KCAL AND 79 GM OF PROTEIN WHICH MEETS 100% OF ESTIMATED NUTRIENT NEEDS 2. RECOMMEND 95 ML Q4H OF FREE WATER FLUSH 3. RD TO FOLLOW-UP 2-3 DAYS, HIGH RISK MERLY SALCEDO, RD
--- NOTE | 2018-06-28 18:45 | NUR ---
TOLENTINO CATHETER CARE PROVIDED, PATIENT TOLERATED WELL
--- NOTE | 2018-06-28 19:16 | NUR ---
ENDORSED CONTINUITY OF CARE TO SHOP MANAGER RNRELL. NO SIGNS OF DISTRESS AT THIS TIME
--- NOTE | 2018-06-28 19:55 | NUR ---
RECEIVED BEDSIDE REPORT FROM MORNING SHIFT RNJUICE. PT IS NONVERBAL, DOES NOT TRACK MOVEMENT, OPENS EYES SPONTANEOUSLY. TRACH TO VENT, ACVC MODE FIO2=30%, VT450, RATE 14, PEEP 5, PMAX 45. LUNG SOUND DIMISHED-CLEAR ON UPPER BILATERAL LOWER LOBES. VAP ORAL CARE PROVIDED. YM=105/74, HR=77, SATING 100%, TEMP 97.7. GTUBE IN PLACE, RESIDUAL OF 200CC, TUBE FEEDINGS OF VITALS AF HELD AT THIS TIME. BOWEL SOUNDS ACTIVE X4. MAX ASSIST X2, SMALL, BROWN PASTY BM AT THIS TIME, PT REPOSITIONED. 18GAUGE PIV TO RIGHT WRIST INFUSING NS AT 75CC/HR. TOLENTINO CATH IN PLACE. URINE IS CLEAR/YELLOW FREE OF SEDIMENTS. SKIN WARM/DRY NORMAL IN COLOR, CONTRACTURES OF LOWER EXTREMITIES. CONTACT ISOLATION, HOB ELEVATED ABOVE 30 DEG. SCDS ON BILATERAL LEGS. SCHEDULED HYDRALAZINE GIVEN AT THIS TIME DUE TO ELEVATED BP.
--- NOTE | 2018-06-28 23:34 | NUR ---
TUBE FEEDING RESUMED AT THIS TIME, RESIDUAL OF 30CC. BG AT THIS TIME IS 75ML, NO COVERAGE GIVEN. PT REPOSITIONED,MAX ASSIST X2 HOB ELEVATED, VAP ORAL CARE AND NO SUCTIONING GIVEN AT THIS TIME.
[2018-06-29] VITALS (14 sets, daily range): BP systolic 129–169; BP diastolic 69–99
[2018-06-29] MEDS: hydrALAZINE 25 MG TAB GT SCH ×3 (01:12→13:41)
--- NOTE | 2018-06-29 04:00 | NUR ---
AM CARES COMPLETED, SUCTIONING PROVIDED X2. NO BM AT THIS TIME, TUBE FEEDING REMAINS AT 60CC/HR NO RESIDUAL AT THIS TIME. AFEBRILE, TEMP 98.6. REPOSITIONED AND RIGHT LEG LES CONTRACTED THAN THE LEFT. TOLERATED REPOSITIONING WELL.
[2018-06-29] MEDS: rOPINIRole 1 MG TAB GT SCH ×2 (04:46→13:40)
[2018-06-29] MEDS: BENZTROPINE 1 MG TAB GT SCH ×2 (04:46→13:41)
[2018-06-29] MEDS: SODIUM CHLORIDE 1 GM TAB GT SCH ×2 (04:47→13:41)
[2018-06-29] MEDS: PIPER/TAZO 3.375GM/D5W PREMIX 50 ML IV SCH ×2 (04:47→13:42)
[2018-06-29] MEDS: BLOOD GLUCOSE MONITORING 1 DEV DEV FS SCH ×2 (05:52→12:00)
--- NOTE | 2018-06-29 06:47 | NUR ---
REC'D PT ON CARESCAPE VENT SETTINGS AC 14 450 PEEP 5 FIO2 24 % ALARMS ON AND AUDIBLE AND AMBU BAG IS AT SIDE OF VENT AND VENT IS PLUGGED INTO RED OUTLET, NO HHN NEEDED AT THIS TIME, B\S ARE DIMINISHED BILATERALLY SXN PT MODERATE AMT OF CREAM COLOR THICK SECRETION PT IS TRACH WITH SHILEY 6 XLT AND SKIN INTEGRITY IS INTACT. PT IS RESTING WITH NO SIGNS OF DISTRESS NOTED AT THIS TIME
--- NOTE | 2018-06-29 07:20 | NUR ---
GAVE BEDSIDE REPORT TO AM SHIFT NORBERT GARZA.
--- NOTE | 2018-06-29 07:30 | NUR ---
RECEIVED BEDSIDE REPORT FROM MORNING SHIFT RNRELL. PT IS NONVERBAL, DOES NOT TRACK MOVEMENT, OPENS EYES ON COMMAND. PERRLA, 3MM RIGHT PUPIL SLUGGISH, 3MM LEFT PUPIL SLUGGISH. TRACH TO VENT, ACVC MODE FIO2=24%, VT450, RATE 14, PEEP 5, PMAX 45. LUNG SOUND DIMINISHED-CLEAR ON UPPER BILATERAL LOWER LOBES. NSR WITH 1 DEGREE HB WITH PAC'S. KB=402/90, RR 22, HR=74, SPO2 100%, TEMP 99.[address], 0CC RESIDUAL, TUBE FEEDINGS OF VITAL AF 1.2 DOE AT 60ML/HR WITH 95ML H20 FLUSH Q4H. BOWEL SOUNDS ACTIVE X4. MAX ASSIST X2, SMALL, BROWN PASTY BM SMEAR AT THIS TIME, PT REPOSITIONED. VAP CARE PROVIDED. 20 GAUGE PIV TO LEFT WRIST INFUSING NS AT 75CC/HR. TOLENTINO CATH IN PLACE. URINE IS CLEAR/YELLOW FREE OF SEDIMENTS. SKIN WARM/DRY NORMAL IN COLOR. SKIN INTACT. CONTRACTURES OF UPPER AND LOWER EXTREMITIES. CONTACT ISOLATION (MRSA NARES), HOB ELEVATED ABOVE 30 DEG. SCD'S ON BILATERAL LEGS. BED LOWERED TO LOWEST SETTING, CALL LIGHT WITHIN REACH.
[2018-06-29] MEDS: DOCUSATE SODIUM 100 MG GELCAP PO SCH (09:13)
[2018-06-29] MEDS: MUPIROCIN CA NASAL 2% 1GM TUBE NS SCH (09:13)
[2018-06-29] MEDS: PANTOPRAZOLE 40 MG INJ VIAL IVP SCH (09:13)
[2018-06-29] MEDS: CHLORHEXADINE GLUC 2% CLOTH TP SCH (09:13)
[2018-06-29] MEDS: cloNIDine 0.1 MG TAB GT PRN (09:35)
--- NOTE | 2018-06-29 09:35 | NUR ---
PT HYPERTENSIVE: BP 175/122, HR 89. WILL ADMINISTER CLONIDINE ORDERED
--- NOTE | 2018-06-29 10:35 | NUR ---
RE-EVALUATION OF PT'S BP: BP 155/89, HR 71
--- NOTE | 2018-06-29 11:45 | NUR ---
DR. LOCKWOOD AT BEDSIDE EVALUATING PT
--- NOTE | 2018-06-29 11:45 | NUR ---
DR. LOCKWOOD AT BEDSIDE EVALUATING PATIENTS. WILL FOLLOW UP ON ORDERS.
--- NOTE | 2018-06-29 13:36 | NUR ---
RECEIVED A CALL FROM FLORESITA AT [facility] [place]. PATIENT CAN GO TO ROOM 27B UNDER DR. VELASQUEZ AFTER 4P.M. PHONE [phone] I CALLED LISA RN IN ICU AND INFORMED HER. SHE WILL ARRANGE TRANSPORT.
--- NOTE | 2018-06-29 13:49 | NUR ---
SPOKE TO RN AND MADE HER AWARE THAT [facility] IS OUT OF TUBE FEED FORMULA VITAL AND WILL SUBSTITUTE WITH JEVITY AT THE SAME GOAL RATE OF 60 ML/HR. MERLY SALCEDO RD
[2018-06-29] MEDS: NACL 0.9% 1,000 ML IV SCH (14:02)
--- NOTE | 2018-06-29 15:00 | NUR ---
REPORT GIVEN TO VLADIMIR SANTOS RN AT [facility] [place] CONTINUITY OF CARE
--- NOTE | 2018-06-29 15:15 | NUR ---
D/C TUBE FEEDINGS AND FLUSHED G-TUBE
--- NOTE | 2018-06-29 16:30 | NUR ---
[facility] PRESENT FOR PT TRANSFER. REPORT GIVEN TO RT JUAN FOR CONTINUITY OF CARE. PT [facility] TO [facility]. CCT WITH RT TRANSPORT.
--- NOTE | 2018-06-29 16:50 | NUR ---
PT DISCHARGED FROM ICU, ENROUTE TO [facility] [place] [facility] WITH [facility].
== END 2018-06-29 16:50 | DRG 690 ==
LOC: MED 19:24 → MIC 21:30
PROVIDERS: ADMIT Internal Medicine Pulmonary Disease; ATTEND Internal Medicine Pulmonary Disease
PROC: 5A1955Z Respiratory Ventilation, Greater than 96 Consecutive Hours (ICD-10-PCS; principal; 2018-06-24)
DX: N39.0 Urinary tract infection, site not specified (principal); E87.1 Hypo-osmolality and hyponatremia; J96.10 Chronic respiratory failure, unspecified whether with hypoxia or hypercapnia; G93.40 Encephalopathy, unspecified; Z99.11 Dependence on respirator [ventilator] status; E44.1 Mild protein-calorie malnutrition; E86.0 Dehydration; E87.5 Hyperkalemia; R13.10 Dysphagia, unspecified; W18.39XA Other fall on same level, initial encounter; Z93.1 Gastrostomy status; Y93.89 Activity, other specified; Y92.89 Other specified places as the place of occurrence of the external cause; Y99.8 Other external cause status; Z22.322 Carrier or suspected carrier of Methicillin resistant Staphylococcus aureus
CPT/HCPCS: 36415; 36600; 70450; 71045; 72125; 80048; 80053; 81001; 82803; 82948; 83605; 83735; 83880; 84484; 85025; 85610; 85730; 87040; 87070; 87081; 87086; 87186; 87205; 89220; 93005; 94002; 94003; 94640; 96365; 99285; C9113; J1644; J1815; J1956; J2543; J7030; J7060; J7613; J7644

== ENCOUNTER 2018-08-02 16:34 | Inpatient (IN) | payer OTHER ==
[~2018-08-02] VITALS: Ht 165.1 cm; Wt 76.2 kg
[~2018-08-02 16:34] MED LIST: BENZ2TAB27 GT; CARB1TER4 GT; CLON0.1T42 GT; CRAN450C GT; DOCU-299 GT; HEPA500056 SQ; HUM SUBQ; HYDR100T79 PO; PRON INH; ROPI4TAB GT; SODI100076 GT
[2018-08-02 16:37] VITALS: BP 115/72
[2018-08-02 17:10] LABS: BASOPHILS % (AUTO) 0.2 % (0.0-2.0); EOSINOPHILS # (AUTO) 0.4 K/uL (0-0.4); EOSINOPHILS % (AUTO) 3.9 % (0.0-4.0); HEMATOCRIT 21.4 % (36-52); HEMOGLOBIN 7.2 g/dL (12.0-18.0); LYMPHOCYTES # (AUTO) 1.2 K/uL (2.0-11.5); LYMPHOCYTES % (AUTO) 13.6 % (20.5-51.1); MEAN CORPUSCULAR HEMOGLOBIN 29 pg (27-31); MEAN CORPUSCULAR HGB CONC 34 g/dL (33-37); MONOCYTES # (AUTO) 0.8 K/uL (0.8-1.0); MONOCYTES % (AUTO) 9.1 % (1.7-9.3); NEUTROPHILS # (AUTO) 6.7 K/uL (1.8-7.7); NEUTROPHILS % (AUTO) 73.2 % (42.2-75.2); PLATELET COUNT (AUTO) 263 K/uL (140-450); RED BLOOD CELL COUNT(AUTO) 2.52 MIL/uL (4.20-6.10); RED CELL DISTRIBUTION WIDTH 15.8 % (11.6-13.7); WHITE BLOOD COUNT (AUTO) 9.2 K/uL (4.8-10.8)
[2018-08-02 17:14] LABS: APPEARANCE,URINE CLEAR (CLEAR); BILIRUBIN,URINE NEGATIVE (NEGATIVE); BLOOD, URINE 3+ (NEGATIVE); COLOR,URINE YELLOW (YELLOW); LEUKOCYTE ESTERASE ,URINE 1+ (NEGATIVE); NITRITE, URINE POSITIVE (NEGATIVE); PH,URINE 6.5 (5.0-9.0); UGLUCOSE NEGATIVE (NEGATIVE)
[2018-08-02 17:24] LABS: ANION GAP 9.5 (8-16); CARBON DIOXIDE 28.8 mmol/L (21-32); CHLORIDE 103 mmol/L (98-107); CREATININE 1.2 mg/dL (0.7-1.3); GLUCOSE 123 mg/dL (74-106); POTASSIUM 4.3 mmol/L (3.5-5.1); SODIUM SERUM 137 mmol/L (136-145); UREA NITROGEN, BLOOD 47 mg/dL (7-18)
[2018-08-02 17:26] LABS: PROTHROMBIN TIME 10.4 secs (10.8-13.4)
[2018-08-02 17:39] LABS: FINE GRANULAR CASTS,URINE 0-10 /LPF (None Seen); RBC,URINE 50-80 /HPF (0-5)
[2018-08-02] MEDS ORDERED: NACL 0.9% 1,000 ML IV SCH (17:49)
[2018-08-02] MEDS ORDERED: NACL 0.9% 500 ML IV SCH (17:49)
[2018-08-02] MEDS ORDERED: FAMOTIDINE 20 MG/2 ML VIAL IVP ONE (17:50)
[2018-08-02] MEDS ORDERED: ONDANSETRON 4 MG/2 ML VIAL IM ONE (17:50)
--- NOTE | 2018-08-02 18:02 | NUR ---
BROUGHT IN BY EMS FOR ABNORMAL LABS HGB 6.7 TODAY---NO SANGUINEOUS DRAINAGE SOURCE NOTED FULL CARE PT; HX CVA CONTRACTURES DIAPER INCONTINENT, TOLENTINO, TRACH TO VENT, G-TUBE
[2018-08-02] MEDS ORDERED: ONDANSETRON 4 MG/2 ML VIAL IVP PRN (18:05)
--- NOTE | 2018-08-02 18:33 | NUR ---
DIGITAL MARKETING LEAD AT THE BEDSIDE DRAWING BLOOD.
[2018-08-02 19:15] VITALS: BP 136/77
--- NOTE | 2018-08-02 19:15 | NUR ---
ADMITTED A 78 MALE ,FROM ER PT ON TELE MONITOR . ON TRACH TO VENT .NO RESPIRATORY DISTRESS NOTED. NON VERBAL BED BOUND WITH IVF INFUSING ON THE LEFT HAND G20 CLEAR AND PATENT ,HAS GT CLAMPED. ,WITH RASHES ON THE LEFT UPPER ABDOMEN ,FC IN PLACE DRAINING WITH SLIGHTLY CLOUDY COLOR URINE. ,NPO WITH DECUBITUS ULCER ON THE SACRAL AREA , O2 SAT.100 %..SON AT BEDSIDE . BED ON ;LOW KAUR POSITION ,SIDERAILS UP X2 ,CALL LIGHT WITHIN REACH ,PLAN OF CARE DISCUSSED WITH FAMILY.,WILL CONTINUE TO MONITRO.
--- NOTE | 2018-08-02 19:33 | NUR ---
Pt transferred to Tele via [facility] ---VENT DEPENDENT RT ACCOMPANIED
[2018-08-02 19:42] LABS: ALBUMIN 2.1 g/dL (3.4-5.0); TOTAL BILIRUBIN 0.3 mg/dL (0.0-1.0)
[2018-08-02] MEDS: DEXT 5% /NACL 0.9% 1,000 ML IV SCH (21:52)
--- NOTE | 2018-08-02 23:49 | NUR ---
PAGED FOR U/A 3+ BACTERIA AND HGB. AND HCT RESULT ,CALLED BACK WITH ORDERS CARRIED OUT .
--- NOTE | 2018-08-03 00:37 | NUR ---
ROCEPHIN 1 GRM TIV GIVEN ORDERED .IV SITE INTACT AND PATENT.
[2018-08-03] MEDS ORDERED: cefTRIAXone 1,000 MG VIAL ONE (00:42)
[2018-08-03 00:45] VITALS: BP 156/78
--- NOTE | 2018-08-03 01:00 | NUR ---
FOR BLOOD TRANSFUSION OF 2 UNITS PRBC PER MD ORDER. TELEPHONE CONSENT TAKEN FROM ESTER ARMAS([id number]) WITH ANOTHER LICENSE RN.
--- NOTE | 2018-08-03 01:30 | NUR ---
1ST UNIT OF PRBC STARTED AFTER VERIFIED WITH MARQUITA RN AND WITH PT. V/S TAKEN PRIOR STARTING BT ,WILL CONTINUE TO MONITOR.
--- NOTE | 2018-08-03 03:00 | NUR ---
BLOOD TRANSFUSION STILL ONGOING. NO REACTION NOTED. WILL CONTINUE TO MONITOR.
[2018-08-03 04:00] VITALS: BP 121/84
--- NOTE | 2018-08-03 04:30 | NUR ---
IST UNIT PRBC COMPLETED WITH NO REACTION NOTED. IV SITE FLUSHED WITH NS 10 ML. VITAL SIGNS STABLE.
--- NOTE | 2018-08-03 05:00 | NUR ---
SCD MACHINE APPLIED TO BILAT. LOWER EXT. ORDERED.
--- NOTE | 2018-08-03 05:30 | NUR ---
2ND UNIT PRBC STARTED AFTER VERIFIED WITH ANOTHER RN ,MARQUITA AND WITH PT. VITAL SIGNS TAKEN AND RECORDED. WILL CONTINUE TO MONITOR.
--- NOTE | 2018-08-03 05:38 | NUR ---
SPUTUM UPTAINED AND SENT TO LAB
[2018-08-03] MEDS: DEXT 5% /NACL 0.9% 1,000 ML IV SCH ×2 (06:35→19:26)
--- NOTE | 2018-08-03 06:48 | NUR ---
REC'D PT ON CARESCAPE VENT SETTINGS AC14 VT 450 PEEP 5 FIO2 30% ALARMS ON AND AUDIBLE AND AMBU BAG IS AT HOB AND VENT IS PLUGGE INTO RED OUTLET , SXN PT SMALL AMT OF THICK WHITE SECRETIONS, B\S ARE RHONCHI BILATERALLY, PT IS TRACH WITH SHILEY 6 XLT AND SKIN INTEGRITY IS INTACT, PT IS SLEEPING WITH NO SIGNS OF DISTRESS NOTED AT THIS TIME
--- NOTE | 2018-08-03 06:58 | NUR ---
2ND UNIT OF PRBC STILL INFUSING ,NO BT REACTION NOTED AT THIS TIME .
--- NOTE | 2018-08-03 07:21 | NUR ---
ENDORSED PT. IN STABLE CONDITION TO AM NURSE FOR CONTINUITY OF CARE.
--- NOTE | 2018-08-03 07:25 | NUR ---
REPORT RECEIVED FROM JAVA APPLICATION DEVELOPER NURSE, PT RESTING QUIETLY IN NO ACUTE DISTRESS, TRACH TO VENT, ON CONTINUOUS CARDIAC AND PULSE OX, SKIN WARM DRY COLOR WNL, BLOOD TRANSFUSION ON GOING, IV SITE WNL, POC REVIEWED, ALL SAFETY MEASURES IN PLACE, WILL CONTINUE TO MONITOR.
[2018-08-03 08:00] VITALS: BP 147/75
--- NOTE | 2018-08-03 08:19 | NUR ---
PATIENT HAS BEEN SCREENED AND CATEGORIZED HIGH NUTRITION RISK. PATIENT WILL BE SEEN WITHIN 1-2 DAYS OF ADMISSION. 08/03/18-08/04/[address]
[2018-08-03] MEDS: FAMOTIDINE 20 MG/2 ML VIAL IVP SCH (08:31)
--- NOTE | 2018-08-03 08:35 | NUR ---
BLOOD TRANSFUSION COMPLETED, 322ML, PT JESENIA WELL, NO S/S OF REACTIONS NOTED.
[2018-08-03] MEDS ORDERED: DOCUSATE SODIUM 100 MG GELCAP PO SCH (09:00)
[2018-08-03] MEDS: DOCUSATE 100 MG/10 ML UDC GT SCH ×2 (09:00→20:53)
[2018-08-03 11:02] LABS: BASOPHILS % (AUTO) 0.4 % (0.0-2.0); EOSINOPHILS # (AUTO) 0.3 K/uL (0-0.4); EOSINOPHILS % (AUTO) 3.4 % (0.0-4.0); HEMATOCRIT 29.2 % (36-52); HEMOGLOBIN 9.6 g/dL (12.0-18.0); LYMPHOCYTES # (AUTO) 1.1 K/uL (2.0-11.5); LYMPHOCYTES % (AUTO) 15.3 % (20.5-51.1); MEAN CORPUSCULAR HEMOGLOBIN 28 pg (27-31); MEAN CORPUSCULAR HGB CONC 33 g/dL (33-37); MEAN CORPUSCULAR VOLUME 85.2 fL (80-94); MONOCYTES # (AUTO) 0.6 K/uL (0.8-1.0); MONOCYTES % (AUTO) 8.2 % (1.7-9.3); NEUTROPHILS # (AUTO) 5.4 K/uL (1.8-7.7); NEUTROPHILS % (AUTO) 72.7 % (42.2-75.2); PLATELET COUNT (AUTO) 232 K/uL (140-450); RED BLOOD CELL COUNT(AUTO) 3.43 MIL/uL (4.20-6.10); WHITE BLOOD COUNT (AUTO) 7.5 K/uL (4.8-10.8)
[2018-08-03 11:38] LABS: ALBUMIN 2.2 g/dL (3.4-5.0); ANION GAP 10.2 (8-16); ASPARTATE AMINOTRANSFERASE 22 U/L (15-37); CARBON DIOXIDE 25.3 mmol/L (21-32); CHLORIDE 106 mmol/L (98-107); CREATININE 1.1 mg/dL (0.7-1.3); GLUCOSE 97 mg/dL (74-106); POTASSIUM 4.5 mmol/L (3.5-5.1); SODIUM SERUM 137 mmol/L (136-145); TOTAL BILIRUBIN 0.4 mg/dL (0.0-1.0); UREA NITROGEN, BLOOD 37 mg/dL (7-18)
[2018-08-03 12:00] VITALS: BP 144/78
[2018-08-03] MEDS: BENZTROPINE 1 MG TAB GT SCH ×2 (12:27→20:52)
--- NOTE | 2018-08-03 12:37 | NUR ---
DR VILLARREAL AT BEDSIDE
[2018-08-03] MEDS ORDERED: BISACODYL 5 MG TABEC GT PRN (12:55)
--- NOTE | 2018-08-03 13:00 | NUR ---
TELEPHONE CONSENT OBTAINED BY SONANDI [phone] FOR COLONOSCOPY TOMORROW, 2 RNS WITNESSED.
[2018-08-03] MEDS ORDERED: BOWEL EVACUANT DRINK 4,000 ML PDS GT SCH (13:05)
[2018-08-03] MEDS: rOPINIRole 1 MG TAB GT SCH ×2 (13:21→20:54)
[2018-08-03] MEDS: hydrALAZINE 25 MG TAB PO SCH ×2 (13:21→17:34)
[2018-08-03] MEDS: CARBIDOPA/LEVODOPA 25/100 MG 1 TAB PO SCH ×2 (13:22→17:32)
[2018-08-03] MEDS: SODIUM CHLORIDE 1 GM TAB GT SCH ×2 (13:22→20:53)
--- NOTE | 2018-08-03 14:02 | NUR ---
SPOKE WITH DAUGHTER CELINE AND AURA ON THE PHONE TO DISCUSS POC AND COLONOSCOPY TOMORROW, DAUGHTERS WANT TO SPEAK WITH A DOCTOR BEFORE PATIENT GETS THE PROCEDURE, WILL RELAY THE MESSAGE TO MD.
--- NOTE | 2018-08-03 15:12 | NUR ---
08/03/18 RD INITIAL ASSESSMENT COMPLETED PLEASE REFER TO NUTRITION ASSESSMENT UNDER CARE ACTIVITY FOR ESTIMATED NUTRITIONAL NEEDS. 1. CONTINUE NPO MEDICALLY NECESSARY 2. WHEN PATIENT IS MEDICALLY STABLE CONSIDER VITAL AF 1.2 AT GOAL RATE 65 ML/HR WITH PROSOURCE ONCE DAILY. START AT 15 ML/HR, ADVANCED BY 20 ML/HR Q6H -THIS WILL PROVIDE 1560 ML, 1932 KCAL, AND 132 GM OF PROTEIN WHICH MEETS 100% OF ESTIMATED CALORIE AND PROTEIN NEEDS 3. RECOMMEND FREE WATER FLUSH [address] TO FOLLOW-UP 2-3 DAYS, HIGH RISK MERLY SALCEDO RD
--- NOTE | 2018-08-03 15:43 | NUR ---
CALLED [facility] AND ORDERED BED, SPOKE TO FAWAD AND GAVE ME CONFIRMATION #[id number].
[2018-08-03 16:00] VITALS: BP 141/80
--- NOTE | 2018-08-03 16:00 | NUR ---
GOLYTELY INFUSING THROUGH GT, PT TOLERATING WELL. ABD SOFT, NON DISTENDED.
[2018-08-03] MEDS ORDERED: ALBUTEROL SULFATE/IPRATROPIU 3 ML SOL IH PRN (17:35)
--- NOTE | 2018-08-03 17:40 | NUR ---
DR WEST AT BEDSIDE.
--- NOTE | 2018-08-03 17:45 | NUR ---
PER DR WEST, HE WILL CALL DAUGHTER AURA AND CELINE AFTER THE LABS TO DISCUSS IF COLONOSCOPY IS NEEDED RECOMMENDED BY DR VILLARREAL. LEFT MESSAGE AT [phone]. AURA Addendum: 08/03/18 at 1820 by Shayy Owen RN ALSO LEFT MESSAGE WITH CELINE [phone]
--- NOTE | 2018-08-03 18:45 | NUR ---
PT TRANSFERRED TO WOUND BED, REPOSITIONED FOR COMFORT, IVF INFUSING WELL, SITE WNL, GT GOLYTELY INFUSING WELL.
[2018-08-03] MEDS: ALBUTEROL SULFATE/IPRATROPIU 3 ML SOL IH SCH (19:18)
--- NOTE | 2018-08-03 19:19 | NUR ---
REPORT GIVEN TO INSTRUMENT AND CONTROL TECHNICIAN NURSE, PT IN STABLE CONDITION.
--- NOTE | 2018-08-03 19:20 | NUR ---
RECEIVED PT FROM DAY SHIFT NURSE FOR CONTINUITY OF CARE. PATIENT IS AWAKE, NON-VERBAL, LYING IN BED, WITH TRACH TUBE IN PLACE. WILL MONITOR PATIENT.
--- NOTE | 2018-08-03 19:39 | NUR ---
RECEIVED PATIENT TRACH SHILEY 6 XLT TO VENT ON SETTINGS: AC/VC 450, 14, +5, 30%. VENT CHECK DONE. VENT PLUGGED INTO RED OUTLET. VENT ALARMS ON AND AUDIBLE. AMBU BAG AT BEDSIDE. CONTINUOUS PULSE OX ON AND FUNCTIONING; ALARMS ON AND AUDIBLE. AIRWAY SECURE AND PATENT. SUCTIONED SMALL AMOUNT OF THICK, PALE YELLOW SECRETIONS. SCHEDULED BREATHING TREATMENT ADMINISTERED. TOLERATED TREATMENT WELL. NO ADVERSE SIDE EFFECTS. NO RESPIRATORY DISTRESS NOTED AT THIS TIME. WILL CONTINUE TO MONITOR.
[2018-08-03 20:00] VITALS: BP 143/79
--- NOTE | 2018-08-03 21:00 | NUR ---
ADMINISTERED MEDICATIONS THROUGH G-TUBE. G-TUBE PLACEMENT VERIFIED AND DRESSING CLEANED AND CHANGED. SUCTIONED THROUGH TRACH TUBE. RE-POSITIONED PATIENT FACING TO RIGHT SIDE. TOLENTINO CATHETER INTACT AND PATENT. CHECKED SACRAL AREA, DRESSING INTACT. BED IN LOW POSITION. SIDE RAILS ARE UP. WILL CONTINUE TO MONITOR PATIENT.
[2018-08-04 00:30] VITALS: BP 167/84
--- NOTE | 2018-08-04 00:30 | NUR ---
ADMINISTERED ANTIBIOTICS THROUGH IV, IV PATENT AND INTACT. ADMINISTERED MEDICATION THROUGH G-TUBE. GO LYTELY STILL RUNNING. BED IN LOW POSITION. SIDE RAILS ARE UP. WILL CONTINUE TO MONITOR PATIENT. Addendum: 08/04/18 at 0131 by Tanner Adhikari RN ADDITIONAL INFORMATION: VITAL SIGNS CHECKED PRIOR TO ADMINISTERING MEDICATION. BP 167/84, P 68, T 97.3, RR 14, O2 100%, NO SIGNS OF PAIN.
[2018-08-04] MEDS: hydrALAZINE 25 MG TAB PO SCH ×5 (00:32→23:41)
[2018-08-04] MEDS: ALBUTEROL SULFATE/IPRATROPIU 3 ML SOL IH SCH ×4 (01:16→19:17)
--- NOTE | 2018-08-04 01:32 | NUR ---
VENT CHECK DONE. VENT ALARMS ON AND AUDIBLE. SCHEDULED BREATHING TREATMENT ADMINISTERED. TOLERATED TX WELL, NO ADVERSE SIDE EFFECTS. NO RESPIRATORY DISTRESS NOTED AT THIS TIME. WILL CONTINUE TO MONITOR.
--- NOTE | 2018-08-04 02:30 | NUR ---
PATIENT APPEARS TO BE SLEEPING, WITH NO SIGNS OF DISTRESS. HEEL PROTECTORS ARE IN PLACE. SCD IN PLACE. IV INFUSING WITH NO COMPLICATIONS. BED IN LOW POSITION, AND SIDE RAILS ARE UP. WILL CONTINUE TO MONITOR PATIENT.
[2018-08-04 04:59] VITALS: BP 170/76
[2018-08-04] MEDS: BENZTROPINE 1 MG TAB GT SCH ×3 (05:00→20:54)
[2018-08-04] MEDS: rOPINIRole 1 MG TAB GT SCH ×3 (05:00→20:53)
[2018-08-04] MEDS: SODIUM CHLORIDE 1 GM TAB GT SCH ×3 (05:00→20:53)
--- NOTE | 2018-08-04 05:00 | NUR ---
PATIENT APPEARS TO BE ASLEEP. GAVE TOLENTINO CARE AND CHANGED CHUX LINEN. REPOSITIONED PATIENT. HAS SMALL PASTY-LIKE BOWEL MOVEMENT. OPTIFOAM DRESSING ON SACRAL AREA STILL IN PLACE. GAVE MOUTH CARE, AND DID ROUTINE SUCTIONING. BED IN LOW POSITION, SIDE RAILS ARE UP, HEEL PROTECTORS ARE IN PLACE, SCD IN PLACE. WILL CONTINUE TO MONITOR PATIENT.
--- NOTE | 2018-08-04 05:11 | NUR ---
TOOK VITAL SIGNS, AND ADMINISTERED HYDRALAZINE MEDICATION THROUGH G-TUBE. G-TUBE IN PLACE AND PATENT. MEDICATION TOLERATED WELL. WILL CONTINUE TO MONITOR PATIENT.
--- NOTE | 2018-08-04 05:49 | NUR ---
VENT CHECK DONE. ALARMS ON AND AUDIBLE. TRACH CARE DONE WITHOUT INCIDENT. NO RESPIRATORY DISTRESS NOTED. WILL CONTINUE TO MONITOR.
[2018-08-04] MEDS: DEXT 5% /NACL 0.9% 1,000 ML IV SCH ×2 (06:15→07:35)
[2018-08-04 06:28] LABS: BASOPHILS % (AUTO) 0.6 % (0.0-2.0); EOSINOPHILS # (AUTO) 0.2 K/uL (0-0.4); EOSINOPHILS % (AUTO) 2.5 % (0.0-4.0); HEMATOCRIT 26.9 % (36-52); HEMOGLOBIN 8.9 g/dL (12.0-18.0); LYMPHOCYTES # (AUTO) 1.9 K/uL (2.0-11.5); LYMPHOCYTES % (AUTO) 25.7 % (20.5-51.1); MEAN CORPUSCULAR HEMOGLOBIN 29 pg (27-31); MEAN CORPUSCULAR HGB CONC 33 g/dL (33-37); MEAN CORPUSCULAR VOLUME 85.8 fL (80-94); MONOCYTES # (AUTO) 0.6 K/uL (0.8-1.0); MONOCYTES % (AUTO) 7.7 % (1.7-9.3); NEUTROPHILS # (AUTO) 4.6 K/uL (1.8-7.7); NEUTROPHILS % (AUTO) 63.5 % (42.2-75.2); PLATELET COUNT (AUTO) 213 K/uL (140-450); RED BLOOD CELL COUNT(AUTO) 3.13 MIL/uL (4.20-6.10); RED CELL DISTRIBUTION WIDTH 15.3 % (11.6-13.7); WHITE BLOOD COUNT (AUTO) 7.3 K/uL (4.8-10.8)
--- NOTE | 2018-08-04 06:33 | NUR ---
RECEIVED PT ON CARESCAPE ON DOCUMENTED SETTINGS, ALARMS ARE ON AND AUDIBLE, PTS TRACH SHILEY 6 XLT IS SECURE, PT IN HF QUIET BS COARSE I\L SX HHN GIVEN I\L WITH 3 MG DUONEB , BMV HOB, CONT POX IN PLACE, VENT PLUGGED INTO RED OUTLET
[2018-08-04 06:34] LABS: ANION GAP 11.1 (8-16); CHLORIDE 107 mmol/L (98-107); GLUCOSE 96 mg/dL (74-106); POTASSIUM 4.1 mmol/L (3.5-5.1); SODIUM SERUM 140 mmol/L (136-145); UREA NITROGEN, BLOOD 26 mg/dL (7-18)
[2018-08-04 06:42] LABS: MAGNESIUM 1.9 mg/dL (1.8-2.4); PHOSPHORUS 3.1 mg/dL (2.5-4.9)
--- NOTE | 2018-08-04 07:00 | NUR ---
PAGED DR. MARTINEZ TO NOTIFY REGARDING STOOL OUTPUT AMOUNT AFTER PRE-OP ADMINISTRATION OF GOLYTELY. WILL ENDORSE TO AM SHIFT NURSE.
--- NOTE | 2018-08-04 07:23 | NUR ---
RECEIVED REPORT FROM PREKINDERGARTEN TEACHER NURSE GRANT. PT IS AAOX1 ON TRACH TO VENT .NO RESPIRATORY DISTRESS NOTED. NON VERBAL BED BOUND WITH IV IN THE LEFT HAND 20G PATENT AND INTACT INFUSING D5NS AT 80ML/HR. PT HAS HAS G-TUBE CLAMPED DUE TO NPO STATUS PENDING POSSIBLE COLONOSCOPY. PT HAS CLOSED SHINGLES RASHES ON THE LEFT UPPER ABDOMEN ,TOLENTINO CATH IN PLACE DRAINING WITH SLIGHTLY CLOUDY COLOR URINE. HAS PRESSURE ULCER ON THE SACRAL AREA WITH OPTIFOAM IN PLACE, DRY AND INTACT. O2 SAT 100 %. BED ALARM ON, SIDE RAILS UP X2 ,CALL LIGHT WITHIN REACH ,PLAN OF CARE DISCUSSED WITH FAMILY. WILL CONTINUE TO MONITOR.
--- NOTE | 2018-08-04 07:25 | NUR ---
ENDORSED PATIENT TO DAY SHIFT NURSE FOR CONTINUITY OF CARE. PATIENT APPEARS TO BE ASLEEP WITH NO SIGNS OF DISTRESS.
[2018-08-04 08:00] VITALS: BP 169/88
[2018-08-04] MEDS: CARBIDOPA/LEVODOPA 25/100 MG 1 TAB PO SCH ×3 (09:07→18:20)
[2018-08-04] MEDS: DOCUSATE 100 MG/10 ML UDC GT SCH ×2 (09:07→20:53)
[2018-08-04] MEDS: FAMOTIDINE 20 MG/2 ML VIAL IVP SCH (09:08)
[2018-08-04] MEDS: cloNIDine 0.1 MG TAB GT PRN (09:08)
[2018-08-04] MEDS ORDERED: LORazepam 2 MG/ML VIAL IVP PRN (09:30)
--- NOTE | 2018-08-04 09:34 | NUR ---
ADMINISTERED PT MORNING MEDICATIONS. PT TOLERATED THEM WELL. PT IN STABLE CONDITION AT THIS TIME. WILL CONTINUE TO ROUND FREQUENTLY ON PT.
[2018-08-04] MEDS ORDERED: fentaNYL 0.05 MG/ML VIAL ONE (10:18)
[2018-08-04] MEDS ORDERED: diphenhydrAMINE 50 MG/ML VIAL ONE (10:18)
[2018-08-04] MEDS ORDERED: MIDAZOLAM 2 MG/2 ML VIAL ONE (10:18)
[2018-08-04] MEDS ORDERED: SODIUM PHOSPHATE 118 ML ENEM RC SCH (10:30)
--- NOTE | 2018-08-04 11:03 | NUR ---
SPOKE WITH PT'S DAUGHTER CELINE. PER DAUGHTER CELINE, FAMILY NO LONGER WANTS PT TO HAVE COLONOSCOPY. WILL NOTIFY DR. MARTINEZ OF CHANGES.
--- NOTE | 2018-08-04 11:51 | NUR ---
PER DR. WILBURN, PT TO BE PLACED BACK ON REGULAR TUBE FEEDING DIET FROM PREVIOUS ORDERS.
--- NOTE | 2018-08-04 11:52 | NUR ---
PT RESTING IN BED. NO SIGNS OF DISTRESS OR PAIN. WILL CONTINUE TO ROUND FREQUENTLY ON PT. BED IN LOWEST POSITION, CALL LIGHT WITHIN REACH.
[2018-08-04 12:00] VITALS: BP 154/95
[2018-08-04] MEDS ORDERED: MAGNESIUM CITRATE 300 ML BTL GT SCH (12:00)
[2018-08-04] MEDS ORDERED: BISACODYL 5 MG TABEC GT SCH (12:00)
--- NOTE | 2018-08-04 12:49 | NUR ---
WOUND EVALUATION NOTE: REASON FOR WOUND EVALUATION: SACROCOCCYX PRESSURE ULCER INJURIES SKIN ASSESSMENT DONE WITH PRIMARY RN ON THIS 78 Y/O MALE PATIENT WITH [place] [facility] [place] [facility], WITH INITIAL DIAGNOSIS OF ABNORMAL LAB RESULTS. PAST MEDICAL HISTORY INCLUDES, CVA, DYSPHAGIA WITH GT RESPIRATORY FAILURE WITH TRACH, DM, AND HX OF PRESSURE ULCERS. PT. ADMITTED WITH CHRONIC WOUND TO SACRALCOCCYX PRESSURE INJURY. ALL ABOVE INFORMATION WAS OBTAINED FROM THE ADMISSION H&P. PT SKIN IS WARM AND DRY,SEVERE CONTRACTURES TO ALL EXTREMITIES. BLE HAIR GROWTH, NO EDEMA. DORSAL PEDAL PULSES PRESENT AND NORMAL. CAPILLARY REFILLED < 2 SEC. INCONTINENT OF BOWEL X1 DURING ASSESSMENT. F/C PATENT WITH MODERATE AMOUNT YELLOW COLOR URINE OUT PUT OBSERVED.PLAN OF CARE DISCUSSED WITH PRIMARY RN. INTEGUMENTARY: -TRACHEOSTOMY STOMA SITE CLEAN AND DRY, MILDRED-STOMA SKIN INTACT. 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 -APPLY Z- GUARD TO IAD TO RIGHT AND LEFT BUTTOCKS AND PERIANAL BIDWC LEAVE IT OPEN TO AIR -APPLY HEEL PROTECTORS TO BILATERAL HEELS AT ALL TIMES -TURN AND REPOSITION PATIENT Q2H, OFFLOAD SACROCOCCYX -ASSESS AND MONITOR SKIN CONDITION DURING POSITION CHANGE -OFFLOAD BILATERAL HEELS BY PLACING PILLOWS UNDER CALVES AT ALL TIMES, UNLESS OTHERWISE CONTRAINDICATED -KEEP SKIN CLEAN AND DRY AT ALL TIMES. -PRESSURE REDISTRIBUTION SURFACE THERAPY RECOMMENDATIONS DISCUSSED WITH PRIMARY RN WILL FOLLOW UP PATIENT Q 7-10 DAYS AND PRN. PLEASE CONTACT WOUND CARE NURSE FOR ANY QUESTIONS AND CHANGES IN WOUND CONDITION. Addendum: 08/04/18 at 1300 by Jeancarlos Michael RN (Grace) CHANGE RECOMMENDATION TO SACRALCOCCYX: -CLEANSE SACROCOCCYX PRESSURE ULCER WITH WOUND CLEANING SOLUTION, PAT DRY, APPLY THERAHONEY GEL TO WOUND BED, COVER WITH OPTIFOAM DRESSING QD AND PRN IF SOILING.
[2018-08-04] MEDS ORDERED: THERAHONEY GEL 42.5 GM TP SCH (13:10)
[2018-08-04] MEDS ORDERED: Z-GUARD PASTE TP SCH (13:15)
--- NOTE | 2018-08-04 13:49 | NUR ---
PT RESTING IN BED. NO SIGNS OF PAIN OR DISTRESS. WILL CONTINUE TO ROUND FREQUENTLY.
--- NOTE | 2018-08-04 15:57 | NUR ---
PT SLEEPING IN BED. NO SIGNS OF DISTRESS OR PAIN. WILL ROUND FREQUENTLY ON PT.
[2018-08-04 16:00] VITALS: BP 164/69
[2018-08-04] MEDS ORDERED: NACL 0.9% 1,000 ML IV SCH (16:10)
--- NOTE | 2018-08-04 17:58 | NUR ---
PT RESTING IN BE. FEEDING RUNNING AT 30ML.HR PER MD ORDERS. PER MD, JEVITY AT 1.2 RUNNING 30ML/HR FOR THE NIGHT AND THEN HER WILL GIVE ORDERS TO INCREASE IN THE MORNING. Q6H 250ML WATER FLUSH. WILL CONTINUE TO ROUND FREQUENTLY.
--- NOTE | 2018-08-04 19:28 | NUR ---
ENDORSED PT TO GYROSCOPIC INSTRUMENT TESTER FOR CONTINUITY OF CARE. PT IN STABLE CONDITION AT THIS TIME.
--- NOTE | 2018-08-04 19:30 | NUR ---
RECEIVED PT ON BED, EYES OPEN, NONVERBAL, VITAL SIGNS STABLE, ON TRACH TO VENT WITH FF SETTINGS:FI02-30%, TV-450, R-14, PEEP-5, SAT-100%, FLACC-0, G-TUBE FEEDING WITH JEVITY AT 30ML/H ON GOING, HOB ELEVATED AT ALL TIMES, TOLENTINO CATHETER IN PLACE DRAINING WELL, CONTRACTURES TO ALL EXTREMITIES NOTED, WILL REPOSITION Q2H AND OFFLOAD PRESSURE AREAS, ON HILL-ROM BED, MAINTAINED ON CONTACT PRECAUTION, SAFETY MEASURES IN PLACE, CALL LIGHT WITHIN REACH.
[2018-08-04 20:00] VITALS: BP 154/79
[2018-08-04] MEDS: ACETYLCYSTEINE 10% (100 MG/ML) 100 MG/ML VIAL INH SCH (21:00)
--- NOTE | 2018-08-04 21:00 | NUR ---
10ML G-TUBE RESIDUAL NOTED, DUE MEDS ADMINISTERED, ORAL CARE DONE USING VAP KIT AND SUCTION SECRETION PRN, REPOSITIONED BY INGREDIENT HANDLER AND OFFLOAD PRESSURE AREAS, ALL NEEDS ANTICIPATED, MONITORED CLOSELY.
--- NOTE | 2018-08-04 23:50 | NUR ---
PT OPEN EYES TO TOUCH, VITAL SIGNS TAKEN, BP SLIGHTLY ELEVATED, ASYMPTOMATIC, DUE BP MEDICATION GIVEN VIA G-TUBE, ROCEPHIN IVPB ADMINISTERED, ORAL CARE DONE USING VAP KIT AND THEN SUCTION SECRETION PRN, CONTINUE TO REPOSITION Q2H AND OFFLOAD PRESSURE AREAS, CONTINUE TO MONITOR CLOSELY.
[2018-08-05] VITALS (8 sets, daily range): BP systolic 151–173; BP diastolic 75–97
[2018-08-05] MEDS: Z-GUARD PASTE TP SCH ×2 (00:57→13:33)
[2018-08-05] MEDS: ALBUTEROL SULFATE/IPRATROPIU 3 ML SOL IH SCH ×4 (01:35→19:17)
--- NOTE | 2018-08-05 03:20 | NUR ---
VENT ALARMING SHOWING PEAK HIGH, SUCTION PT X2 WITH MODERATE SECRETION NOTED, VENT STILL ALARMING, RT ABDIRASHID PAGED AND CHECKED THE PT, CONTINUE TO MONITOR CLOSELY.
[2018-08-05] MEDS: SODIUM CHLORIDE 1 GM TAB GT SCH ×3 (04:12→20:06)
[2018-08-05] MEDS: BENZTROPINE 1 MG TAB GT SCH ×3 (04:12→20:10)
[2018-08-05] MEDS: rOPINIRole 1 MG TAB GT SCH ×3 (04:13→20:06)
[2018-08-05] MEDS: cloNIDine 0.1 MG TAB GT PRN (04:13)
--- NOTE | 2018-08-05 04:15 | NUR ---
PT AROUSABLE TO TOUCH, VITAL SIGNS TAKEN, BP-173/94, FLACC-0, ASYMPTOMATIC, NO SIGNS OF RESP DISTRESS, 10ML G-TUBE RESIDUAL NOTED, DUE MEDS AND PRN CLONIDINE ADMINISTERED, ORAL CARE DONE USING VAP KIT, MONITORED CLOSELY.
[2018-08-05] MEDS: hydrALAZINE 25 MG TAB PO SCH ×4 (05:38→23:34)
--- NOTE | 2018-08-05 05:47 | NUR ---
BP-167/92, HR-68, ASYMPTOMATIC, DUE BP MEDICATION ADMINISTERED, SUCTIONED PRN WITH MODERATE SECRETION NOTED, MONITORED CLOSELY.
[2018-08-05 06:08] LABS: ANION GAP 12.1 (8-16); CARBON DIOXIDE 23.8 mmol/L (21-32); CHLORIDE 106 mmol/L (98-107); GLUCOSE 97 mg/dL (74-106); POTASSIUM 3.9 mmol/L (3.5-5.1); SODIUM SERUM 138 mmol/L (136-145); UREA NITROGEN, BLOOD 19 mg/dL (7-18)
[2018-08-05 06:25] LABS: MAGNESIUM 1.9 mg/dL (1.8-2.4); PHOSPHORUS 3.5 mg/dL (2.5-4.9)
[2018-08-05 06:42] LABS: BASOPHILS % (AUTO) 0.4 % (0.0-2.0); EOSINOPHILS # (AUTO) 0.2 K/uL (0-0.4); EOSINOPHILS % (AUTO) 2.1 % (0.0-4.0); HEMATOCRIT 25.7 % (36-52); HEMOGLOBIN 8.6 g/dL (12.0-18.0); LYMPHOCYTES # (AUTO) 1.3 K/uL (2.0-11.5); LYMPHOCYTES % (AUTO) 13.4 % (20.5-51.1); MEAN CORPUSCULAR HEMOGLOBIN 29 pg (27-31); MEAN CORPUSCULAR HGB CONC 33 g/dL (33-37); MEAN CORPUSCULAR VOLUME 86.2 fL (80-94); MONOCYTES # (AUTO) 0.6 K/uL (0.8-1.0); MONOCYTES % (AUTO) 5.6 % (1.7-9.3); NEUTROPHILS # (AUTO) 7.7 K/uL (1.8-7.7); NEUTROPHILS % (AUTO) 78.5 % (42.2-75.2); PLATELET COUNT (AUTO) 208 K/uL (140-450); RED BLOOD CELL COUNT(AUTO) 2.98 MIL/uL (4.20-6.10); RED CELL DISTRIBUTION WIDTH 15.9 % (11.6-13.7); WHITE BLOOD COUNT (AUTO) 9.9 K/uL (4.8-10.8)
--- NOTE | 2018-08-05 07:10 | NUR ---
PT EASILY AROUSABLE, NO DISTRESS NOTED, BEDSIDE REPORT GIVEN TO KAYLA MENENDEZ FOR CONTINUITY OF CARE.
--- NOTE | 2018-08-05 07:11 | NUR ---
RECEIVED BEDSIDE REPORT FROM KAYLA SMITH. PT STABLE, SLEEPING, BUT EASILY AROUSABLE. NO SIGNS OF DISTRESS NOTED. TRACH TO VENT, FI02 30%, RR 16, O2 SAT AT 100%. NO REDNESS, SWELLING, OR INFLAMMATION NOTED ON IV SITE. CALL MOTA WITHIN REACH. BED IN LOWEST POSITION, BED ALARM ON. SAFETY MEASURES IN PLACE. PLAN OF CARE REVIEWED.
[2018-08-05] MEDS: DOCUSATE 100 MG/10 ML UDC GT SCH ×2 (09:12→20:06)
[2018-08-05] MEDS: CARBIDOPA/LEVODOPA 25/100 MG 1 TAB PO SCH ×3 (09:13→17:54)
[2018-08-05] MEDS: FAMOTIDINE 20 MG/2 ML VIAL IVP SCH (09:13)
[2018-08-05] MEDS: MUPIROCIN CA NASAL 2% 1GM TUBE NS SCH (09:13)
--- NOTE | 2018-08-05 09:26 | NUR ---
ADMINISTERED SCHEDULED MEDICATIONS, PT TOLERATED WELL. RECHECKED BP, 164/93. WILL PAGE DR WEST. Addendum: 08/05/18 at 1928 by Polina Singh RN RESIDUAL CHECKED PRIOR TO GIVING MEDICATIONS, 5ML.
--- NOTE | 2018-08-05 09:30 | NUR ---
PAGED DR WEST.
--- NOTE | 2018-08-05 09:34 | NUR ---
MADE DR WEST AWARE OF BP 164/93. RECEIVED TELEPHONE ORDER FROM DR WEST TO CHANGE PRN CLONIDINE 0.1 MG TO Q4H PRN. ALSO RECEIVED ORDER FOR BG CHECK Q6H AND HUMALOG SLIDING SCALE. WILL PUT IN ORDER.
[2018-08-05] MEDS ORDERED: INSULIN LISPRO SLIDING SCALE 100 UNITS/ML VIAL SUBQ PRN (09:50)
[2018-08-05] MEDS ORDERED: cloNIDine 0.1 MG TAB GT PRN (09:55)
[2018-08-05] MEDS: ACETYLCYSTEINE 10% (100 MG/ML) 100 MG/ML VIAL INH SCH (11:05)
--- NOTE | 2018-08-05 11:15 | NUR ---
REPOSITIONED PT, LINENS AND GOWN CHANGED. PT STABLE.
[2018-08-05] MEDS: BLOOD GLUCOSE MONITORING 1 DEV DEV FS SCH ×3 (12:00→23:36)
[2018-08-05] MEDS: THERAHONEY GEL 42.5 GM TP SCH (13:33)
--- NOTE | 2018-08-05 13:41 | NUR ---
RESIDUAL CHECKED, 55ML. ADMINISTERED ALL SCHEDULED MEDICATIONS, PT TOLERATED WELL. NO SIGNS OF DISTRESS NOTED.
--- NOTE | 2018-08-05 14:00 | NUR ---
PER DR WEST'S ORDER, HOLD TUBE FEEDING FOR 4 HRS AFTER RUNNING FOR 20 HOURS. PT'S TUBE FEEDING HELD AT THIS TIME, WILL RESUME AT 1800.
[2018-08-05] MEDS ORDERED: HYDR-4420 PO (14:07)
--- NOTE | 2018-08-05 15:20 | NUR ---
ADMINISTERED SCHEDULED MEDICATION, PT TOLERATED WELL. PT STABLE AND AWAKE, NO SIGNS OF DISTRESS NOTED.
--- NOTE | 2018-08-05 15:30 | NUR ---
PER DIETITIAN'S RECOMMENDATION, RECEIVED VERBAL ORDER FROM DR WEST TO CHANGE TUBE FEEDING TO VITAL AF 1.2 AT 65 ML/HR WITH PROSOURCE, FREE WATER FLUSH 100ML Q4H. HOLD TF IF RESIDUAL REACHES 100ML, CHECK IN 1 HR, THEN RESUME TF WHEN RESIDUAL IS LESS THAN 100ML. WILL PUT IN ORDER.
--- NOTE | 2018-08-05 16:10 | NUR ---
VITAL SIGNS TAKEN, PT STABLE. NO SIGNS OF DISTRESS NOTED.
--- NOTE | 2018-08-05 17:04 | NUR ---
WOUND CARE DONE, DRESSING CHANGED. LINENS CHANGED, PT REPOSITIONED.
--- NOTE | 2018-08-05 18:00 | NUR ---
ADMINISTERED SCHEDULED MEDICATIONS, PT TOLERATED WELL. BG CHECKED, 94, NO COVERAGE NEEDED. TUBE FEEDING VITAL AF 1.2 AT 65 ML/HR STARTED PER ORDER. PT'S MELISSA MILLER AT THE BEDSIDE. Addendum: 08/05/18 at 1823 by Polina Singh RN ADMINISTERED PROSOURCE PER MD ORDER. Addendum: 08/05/18 at 1926 by Polina Singh RN NO RESIDUAL NOTED PRIOR TO GIVING MEDICATIONS.
--- NOTE | 2018-08-05 19:05 | NUR ---
ENDORSED PT TO KAYLA SMITH FOR CONTINUITY OF CARE. PT STABLE.
--- NOTE | 2018-08-05 19:15 | NUR ---
RECEIVED PT ON BED, EYES OPEN, NONVERBAL, VITAL SIGNS STABLE, ON TRACH TO VENT WITH FF SETTINGS:FI02-30%, TV-450, R-14, PEEP-5, SAT-100%, FLACC-0, G-TUBE FEEDING WITH VITAL AF AT 65ML/H ON GOING, HOB ELEVATED AT ALL TIMES, TOLENTINO CATHETER IN PLACE DRAINING WELL, CONTRACTURES TO ALL EXTREMITIES NOTED, WILL REPOSITION Q2H AND OFFLOAD PRESSURE AREAS, ON HILL-ROM BED, MAINTAINED ON CONTACT PRECAUTION, SAFETY MEASURES IN PLACE, CALL LIGHT WITHIN REACH.
--- NOTE | 2018-08-05 20:30 | NUR ---
120ML G-TUBE RESIDUAL NOTED, DUE MEDS ADMINISTERED AND FORTAZ IVPB STARTED, MONITORED FOR REACTION, G-TUBE FEEDING HELD FOR NOW PER PARAMETERS, WILL RECHECKED RESIDUAL IN AN HOUR, ORAL CARE DONE USING VAP KIT, SUCTION SECRETION PRN, NEEDS ANTICIPATED.
--- NOTE | 2018-08-05 22:10 | NUR ---
100 ML RESIDUAL NOTED, WILL RECHECKED RESIDUAL IN 1 HOUR, FLACC-0, NO RESP DISTRESS NOTED, REPOSITIONED AND OFFLOAD PRESSURE AREAS, MONITORED CLOSELY.
--- NOTE | 2018-08-05 23:40 | NUR ---
VITAL SIGNS TAKEN, BP SLIGHTLY ELEVATED, ASYMPTOMATIC, WILL GIVE DUE BP MEDICATION, RESIDUAL OF 130 ML, WILL CONTINUE TO HOLD FEEDING PER PARAMETERS, BLOOD SUGAR CHECKED WITH 87 RESULT, ORAL CARE DONE USING VAP KIT, SUCTIONED SECRETION PRN, REPOSITIONED AND OFFLOAD PRESSURE AREAS, CONTINUE TO MONITOR CLOSELY.
[2018-08-06] VITALS: BP 160/99
[2018-08-06] MEDS: ALBUTEROL SULFATE/IPRATROPIU 3 ML SOL IH SCH ×4 (00:06→19:28)
[2018-08-06] MEDS: ACETYLCYSTEINE 10% (100 MG/ML) 100 MG/ML VIAL INH SCH ×3 (00:06→19:28)
[2018-08-06] MEDS: Z-GUARD PASTE TP SCH ×2 (00:24→13:29)
--- NOTE | 2018-08-06 01:10 | NUR ---
120ML G-TUBE RESIDUAL NOTED, CONTINUE TO HOLD FEEDING PER PARAMETER, TOLENTINO CATHETER CARE WITH PROVON WIPE DONE, NEW TOLENTINO CATH SECUREMENT DEVICE APPLIED, PT IN NO RESP DISTRESS, MONITORED CLOSELY.
--- NOTE | 2018-08-06 02:50 | NUR ---
60 ML RESIDUAL NOTED, TUBE FEEDING RESUMED AT 65 ML/H WITH FREE WATER FLUSH OF 100ML Q4H, MAINTAINED HOB ELEVATED AT ALL TIMES, MONITORED CLOSELY.
[2018-08-06 04:00] VITALS: BP 153/95
--- NOTE | 2018-08-06 04:00 | NUR ---
PT SLEEPING, OPEN EYES TO TOUCH, VITAL SIGNS TAKEN, BP SLIGHTLY ELEVATED, ASYMPTOMATIC, NO RESP DISTRESS NOTED, CONTINUE TO REPOSITION Q2H AND OFFLOAD PRESSURE AREAS, G-TUBE FEEDING ON-GOING, MONITORED CLOSELY.
[2018-08-06] MEDS: rOPINIRole 1 MG TAB GT SCH ×3 (04:13→20:24)
[2018-08-06] MEDS: BENZTROPINE 1 MG TAB GT SCH ×3 (04:13→20:24)
[2018-08-06] MEDS: SODIUM CHLORIDE 1 GM TAB GT SCH ×3 (04:13→20:24)
[2018-08-06] MEDS: BLOOD GLUCOSE MONITORING 1 DEV DEV FS SCH ×4 (05:33→23:59)
[2018-08-06] MEDS: hydrALAZINE 25 MG TAB PO SCH ×3 (05:33→17:14)
--- NOTE | 2018-08-06 05:40 | NUR ---
170 ML RESIDUAL NOTED, WILL HOLD TUBE FEEDING PER PARAMETERS, DUE MEDICATION ADMINISTERED, BLOOD SUGAR CHECKED WITH 104 RESULT, ORAL CARE USING VAP KIT, SUCTION SECRETION PRN, MONITORED CLOSELY.
[2018-08-06] MEDS ORDERED: AMIKACIN PER PHARMACY MC PRN (06:40)
--- NOTE | 2018-08-06 07:08 | NUR ---
PT SLEEPING, NO SIGNS OF DISTRESS, REPORT GIVEN TO SHON FOR CONTINUITY OF CARE.
--- NOTE | 2018-08-06 07:09 | NUR ---
RECEIVED BEDSIDE REPORT FROM KAYLA SMITH. PT STABLE, AWAKE, ALERT AND ORIENTED X1. NO SIGNS OF DISTRESS NOTED. TRACH TO VENT, FI02 30%, RR 16, O2 SAT AT 100%. NO REDNESS, SWELLING, OR INFLAMMATION NOTED ON IV SITE. CALL MOTA WITHIN REACH. BED IN LOWEST POSITION, BED ALARM ON. SAFETY MEASURES IN PLACE. PLAN OF CARE REVIEWED.
[2018-08-06 08:00] VITALS: BP 139/95
[2018-08-06 08:01] LABS: BASOPHILS % (AUTO) 0.4 % (0.0-2.0); EOSINOPHILS # (AUTO) 0.3 K/uL (0-0.4); EOSINOPHILS % (AUTO) 3.5 % (0.0-4.0); HEMOGLOBIN 9.6 g/dL (12.0-18.0); LYMPHOCYTES % (AUTO) 11.1 % (20.5-51.1); MEAN CORPUSCULAR HEMOGLOBIN 29 pg (27-31); MEAN CORPUSCULAR HGB CONC 33 g/dL (33-37); MEAN CORPUSCULAR VOLUME 86.5 fL (80-94); MONOCYTES # (AUTO) 0.5 K/uL (0.8-1.0); MONOCYTES % (AUTO) 4.9 % (1.7-9.3); NEUTROPHILS # (AUTO) 7.5 K/uL (1.8-7.7); NEUTROPHILS % (AUTO) 80.1 % (42.2-75.2); PLATELET COUNT (AUTO) 237 K/uL (140-450); RED BLOOD CELL COUNT(AUTO) 3.35 MIL/uL (4.20-6.10); WHITE BLOOD COUNT (AUTO) 9.4 K/uL (4.8-10.8)
[2018-08-06] MEDS ORDERED: GENTAMICIN PER PHARMACY MC PRN (08:15)
[2018-08-06 08:28] LABS: ANION GAP 11.7 (8-16); CARBON DIOXIDE 24.6 mmol/L (21-32); CHLORIDE 104 mmol/L (98-107); GLUCOSE 109 mg/dL (74-106); POTASSIUM 4.3 mmol/L (3.5-5.1); SODIUM SERUM 136 mmol/L (136-145); UREA NITROGEN, BLOOD 18 mg/dL (7-18)
[2018-08-06] MEDS: DOCUSATE 100 MG/10 ML UDC GT SCH ×2 (09:52→20:24)
[2018-08-06] MEDS: FAMOTIDINE 20 MG/2 ML VIAL IVP SCH (09:52)
[2018-08-06] MEDS: CARBIDOPA/LEVODOPA 25/100 MG 1 TAB PO SCH ×3 (09:52→17:13)
[2018-08-06] MEDS: MUPIROCIN CA NASAL 2% 1GM TUBE NS SCH (09:53)
[2018-08-06] MEDS: GENTAMICIN 120 MG in DEXTROSE 5% 100 ML IV SCH (09:53)
--- NOTE | 2018-08-06 09:55 | NUR ---
RESIDUAL CHECKED, 60ML, RESUMED TUBE FEEDING PER MD ORDER. ADMINISTERED ALL SCHEDULED MEDICATIONS, PT TOLERATED WELL. WILL CALL LAB AFTER AMIKACIN IS DONE INFUSING.
--- NOTE | 2018-08-06 11:39 | NUR ---
PT REPOSITIONED, LINENS AND GOWN CHANGED. WOUND CARE PROVIDED, DRESSING CHANGED.
[2018-08-06 12:00] VITALS: BP 149/81
[2018-08-06] MEDS: THERAHONEY GEL 42.5 GM TP SCH (13:29)
--- NOTE | 2018-08-06 13:30 | NUR ---
RECHECKED RESIDUAL, 100 ML, HELD TUBE FEEDING AT THIS TIME PER MD ORDER. ADMINISTERED SCHEDULED MEDICATIONS, PT TOLERATED WELL. NO OTHER NEEDS AT THIS TIME.
--- NOTE | 2018-08-06 14:34 | NUR ---
08/06/18 RD FOLLOW UP COMPLETED PLEASE REFER TO NUTRITION ASSESSMENT UNDER CARE ACTIVITY FOR ESTIMATED NUTRITIONAL NEEDS. 1. CONTINUE VITAL 1.2 AT 65 ML/HR --THIS WILL PROVIDE 1560 ML, 1932 KCAL, AND 132 GM OF PROTEIN WHICH MEETS 100% OF ESTIMATED CALORIE AND PROTEIN NEEDS 2. CONTINUE FREE WATER FLUSH 100 ML Q4H 3. RECOMMEND MVI AND VITAMIN C 1000 MG DAILY FOR WOUND HEALING 4. RD TO FOLLOW-UP 2-3 DAYS, HIGH RISK CHI MONAE, RD
--- NOTE | 2018-08-06 15:00 | NUR ---
RECHECKED RESIDUAL, 40ML, RESUMED TUBE FEEDING.
[2018-08-06] MEDS ORDERED: HYDR-4420 PO (15:34)
[2018-08-06] MEDS ORDERED: GENTAMICIN (15:40)
[2018-08-06] MEDS ORDERED: [UNRECOGNIZED DRUG - CODE] (15:40)
[2018-08-06] MEDS ORDERED: GENTAMICIN IV (15:41)
[2018-08-06 16:00] VITALS: BP 157/94
--- NOTE | 2018-08-06 16:00 | NUR ---
PT'S URINE IS PALE YELLOW WITH RED SEDIMENTS, MADE DR WEST AWARE. RECEIVED VERBAL ORDERS FROM DR WEST FOR MULTIVITAMIN ONCE DAILY AND VITAMIN C ONCE DAILY FOR WOUND HEALING, PER DIETITIAN'S RECOMMENDATION. WILL PUT IN ORDER.
--- NOTE | 2018-08-06 16:10 | NUR ---
VITAL SIGNS TAKEN, PT STABLE. NO SIGNS OF DISTRESS NOTED.
--- NOTE | 2018-08-06 16:57 | NUR ---
CALLED [facility] [phone] NOTIFIED THAT PATIENT HAS D/C ORDER ,PER FLORESITA WILL REVIEW THE PAPER WORK AND IF SHE HAS A BED SHE WILL CALL. CALLED [facility] SPOKE WITH KAROL BLOOD FOR TRANSPORT [phone]
--- NOTE | 2018-08-06 17:25 | NUR ---
ADMINISTERED SCHEDULED MEDICATIONS, PT TOLERATED WELL. NO OTHER NEEDS AT THIS TIME.
--- NOTE | 2018-08-06 18:00 | NUR ---
BLOOD GLUCOSE CHECKED, 96, NO COVERAGE NEEDED. PT IS STABLE, SLEEPING, BUT EASILY AROUSABLE. CHEST RISE AND FALL VISIBLY NOTED.
--- NOTE | 2018-08-06 18:40 | NUR ---
ORAL CARE PROVIDED TO PT. TUBE FEEDING CHANGED, PROSOURCE GIVEN TO PT THROUGH G-TUBE. PT TOLERATED WELL. NO OTHER NEEDS AT THIS TIME.
--- NOTE | 2018-08-06 19:30 | NUR ---
ENDORSED PT TO RN SUMMER FOR CONTINUITY OF CARE. PT STABLE.
--- NOTE | 2018-08-06 19:30 | NUR ---
RECEIVED BEDSIDE REPORT FROM DAY SHIFT RN, PATIENT ON CONTACT ISOLATION FOR MRSA OR NARES, TRACH TO VENT, AC, FIO2 30%, VT 450, FLOW 35, PEEP 5, V/S STABLE, FLACC-0, HOB AT 45 DEGREES, TOLENTINO CATH IN PLACE DRAINING DARK YELLOW URINE WITH BLOOD CLOTS SEEN, G TUBE IN PLACE INFUSING JEVITY 1.2 AT 65 ML/HR WITH 100 ML WATER FLUSH Q4H. NOTED SACRAL WOUND, DRESSING INTACT, IV IN LEFT HAND 20 G PATENT, SL. Addendum: 08/07/18 at 9173 by Rimma Haddad RN VITAL AF
[2018-08-06 20:00] VITALS: BP 141/88
--- NOTE | 2018-08-06 20:25 | NUR ---
DUE MEDICATIONS GIVEN
[2018-08-07] VITALS: BP 140/80
--- NOTE | 2018-08-07 00:06 | NUR ---
DUE MEDICATIONS GIVEN, BG 90 NO COVERAGE NEEDED
[2018-08-07] MEDS: ALBUTEROL SULFATE/IPRATROPIU 3 ML SOL IH SCH ×3 (01:16→13:20)
--- NOTE | 2018-08-07 01:19 | NUR ---
Z GUARD APPLIED ACCORDING TO MD ORDER.
[2018-08-07] MEDS: GENTAMICIN 120 MG in DEXTROSE 5% 100 ML IV SCH (02:45)
--- NOTE | 2018-08-07 02:52 | NUR ---
DUE GENTAMICIN GIVEN, PROVIDED TOLENTINO CARE, NOTED RED BLOOD CLOTS IN TOLENTINO BAG.
[2018-08-07 04:00] VITALS: BP 141/83
[2018-08-07] MEDS: BLOOD GLUCOSE MONITORING 1 DEV DEV FS SCH ×2 (05:19→12:24)
[2018-08-07] MEDS: BENZTROPINE 1 MG TAB GT SCH ×2 (05:19→12:41)
[2018-08-07] MEDS: hydrALAZINE 25 MG TAB PO SCH ×3 (05:19→12:40)
[2018-08-07] MEDS: rOPINIRole 1 MG TAB GT SCH ×2 (05:20→12:41)
[2018-08-07] MEDS: SODIUM CHLORIDE 1 GM TAB GT SCH ×2 (05:20→12:40)
--- NOTE | 2018-08-07 05:51 | NUR ---
DUE MEDICATIONS GIVEN, BG 103 NO COVERAGE NEEDED
[2018-08-07] MEDS: ACETYLCYSTEINE 10% (100 MG/ML) 100 MG/ML VIAL INH SCH (06:38)
--- NOTE | 2018-08-07 07:05 | NUR ---
RECEIVED BEDSIDE REPORT FROM RN SUMMER. PT STABLE, AWAKE, ALERT AND ORIENTED X1. NO SIGNS OF DISTRESS NOTED. TRACH TO VENT, FI02 30%, RR 20, O2 SAT AT 100%. NO REDNESS, SWELLING, OR INFLAMMATION NOTED ON IV SITE. CALL MOTA WITHIN REACH. BED IN LOWEST POSITION, BED ALARM ON. SAFETY MEASURES IN PLACE. PLAN OF CARE REVIEWED.
--- NOTE | 2018-08-07 07:30 | NUR ---
ENDORSED PATIENT TO DAY SHIFT NURSE, PATIENT STABLE.
[2018-08-07 08:00] VITALS: BP 145/76
--- NOTE | 2018-08-07 08:15 | NUR ---
REC'D PT ON CARESCAPE VENT SETTINGSAC 14 VT 450 PEEP 5 FIO2 30% ALARMS ON AND AUDIBLE AND AMBU BAG IS AT HOB AND VENT IS PLUGGED INTO RED OUTLET, I\L TX GIVEN WITH DUONEB 3ML AND 10% MUCOMYST 2CC WITH NO ADVERSE REACTION POST TX, B\S ARE CLEAR BILATERALLY, SXN PT SMALL AMT OF YELLOW SECRETIONS PT TRACH WITH SHILEY 6XLT AND SKIN INTEGRITY IS INTACT
[2018-08-07] MEDS ORDERED: CHLORHEXADINE GLUC 2% CLOTH TP SCH (09:00)
[2018-08-07] MEDS ORDERED: ASCORBIC ACID 500 MG/5 ML ORASYR GT SCH (09:00)
[2018-08-07] MEDS ORDERED: MULTIVITAMIN/MINERALS 1 TAB GT SCH (09:00)
[2018-08-07] MEDS: CARBIDOPA/LEVODOPA 25/100 MG 1 TAB PO SCH ×2 (09:23→12:40)
[2018-08-07] MEDS: DOCUSATE 100 MG/10 ML UDC GT SCH (09:24)
[2018-08-07] MEDS: MUPIROCIN CA NASAL 2% 1GM TUBE NS SCH (09:24)
[2018-08-07] MEDS: FAMOTIDINE 20 MG/2 ML VIAL IVP SCH (09:24)
--- NOTE | 2018-08-07 09:25 | NUR ---
CHECKED RESIDUAL, 250ML, HELD TUBE FEEDING AT THIS TIME PER MD ORDER. WILL RECHECK RESIDUAL. ADMINISTERED ALL SCHEDULED MEDICATIONS, PT TOLERATED WELL. PT REPOSITIONED. NO OTHER NEEDS AT THIS TIME. WILL CONTINUE TO MONITOR.
--- NOTE | 2018-08-07 10:30 | NUR ---
RECHECKED RESIDUAL, 110 ML, HELD TUBE FEEDING AT THIS TIME PER MD ORDER. WILL RECHECK AGAIN.
--- NOTE | 2018-08-07 11:07 | NUR ---
SPOKE WITH PSYCHOLOGICAL ASSISTANT LAZARA REGARDING PT'S LAB DRAW FOR THIS MORNING. PER LAZARA, SHE WAS UNABLE TO DRAW BLOOD FOR PT AND SHE WILL COME BACK LATER IN THE AFTERNOON TO TRY AGAIN.
--- NOTE | 2018-08-07 11:35 | NUR ---
RESIDUAL RECHECKED, 180ML, HELD TUBE FEEDING PER MD ORDER. BLOOD GLUCOSE CHECKED, 101, NO COVERAGE NEEDED. VITAL SIGNS TAKEN, PT STABLE. FAMILY AT THE BEDSIDE. SALES AND SUPPORT CENTER AGENT LAZARA AT THE BEDSIDE TO DRAW BLOOD FOR MORNING LABS.
[2018-08-07 12:00] VITALS: BP 147/83
[2018-08-07 12:15] LABS: BASOPHILS % (AUTO) 0.3 % (0.0-2.0); EOSINOPHILS # (AUTO) 0.3 K/uL (0-0.4); EOSINOPHILS % (AUTO) 4.1 % (0.0-4.0); HEMATOCRIT 27.3 % (36-52); LYMPHOCYTES # (AUTO) 1.1 K/uL (2.0-11.5); LYMPHOCYTES % (AUTO) 13.3 % (20.5-51.1); MEAN CORPUSCULAR HEMOGLOBIN 28 pg (27-31); MEAN CORPUSCULAR HGB CONC 33 g/dL (33-37); MEAN CORPUSCULAR VOLUME 85.4 fL (80-94); MONOCYTES # (AUTO) 0.5 K/uL (0.8-1.0); MONOCYTES % (AUTO) 5.9 % (1.7-9.3); NEUTROPHILS # (AUTO) 6.4 K/uL (1.8-7.7); NEUTROPHILS % (AUTO) 76.4 % (42.2-75.2); PLATELET COUNT (AUTO) 229 K/uL (140-450); RED BLOOD CELL COUNT(AUTO) 3.19 MIL/uL (4.20-6.10); WHITE BLOOD COUNT (AUTO) 8.4 K/uL (4.8-10.8)
[2018-08-07] MEDS: THERAHONEY GEL 42.5 GM TP SCH (12:41)
[2018-08-07] MEDS: Z-GUARD PASTE TP SCH ×2 (12:41)
--- NOTE | 2018-08-07 12:45 | NUR ---
ADMINISTERED SCHEDULED MEDICATIONS, PT TOLERATED WELL. PT STABLE, NO SIGNS OF DISTRESS NOTED.
[2018-08-07 13:04] LABS: ANION GAP 9.3 (8-16); CARBON DIOXIDE 26.1 mmol/L (21-32); CHLORIDE 104 mmol/L (98-107); GLUCOSE 98 mg/dL (74-106); POTASSIUM 4.4 mmol/L (3.5-5.1); SODIUM SERUM 135 mmol/L (136-145); UREA NITROGEN, BLOOD 25 mg/dL (7-18)
[2018-08-07 13:07] LABS: MAGNESIUM 1.9 mg/dL (1.8-2.4); PHOSPHORUS 4.1 mg/dL (2.5-4.9)
--- NOTE | 2018-08-07 13:07 | NUR ---
CONTACTED [facility], SPOKE WITH SCOUT, STATED THEY HAVE AN ISOLATION BED READY FOR PT (ROOM 123-B). CALLED DR. SONG, DISCHARGE ORDER GIVEN. SET UP ACLS TRANSPORTATION THRU [facility], [place], TRANSPORT AUTHORIZATION GIVEN. TRANSPORTATION ETA WILL BE AT 3PM TODAY. SHON VELASCO-NURSE ASSIGNED MADE AWARE. RT ZHAO MADE AWARE WELL.
--- NOTE | 2018-08-07 13:10 | NUR ---
RESIDUAL CHECKED, 95ML, RESUMED TUBE FEEDING PER MD ORDER AND ADMINISTERED DAILY PROSOURCE THROUGH G-TUBE. CHANGED TUBE FEEDING. PROVIDED WOUND ASSESSMENT AND WOUND CARE TO PT, DRESSING CHANGED, PICTURE TAKEN. PT TOLERATED WELL.
--- NOTE | 2018-08-07 14:23 | NUR ---
INFORMED PT'S SON ESTER REGARDING PT'S TRANSFER BACK TO [facility] TODAY AT 1500. GAVE REPORT TO MAGEN FROM [facility].
--- NOTE | 2018-08-07 15:20 | NUR ---
D/C INSTRUCTIONS AND PAPERWORK GIVEN TO [facility] TRANSPORT DUE TO PT IS UNABLE TO COMPREHEND, [facility] STAFF VERBALIZED UNDERSTANDING. QUESTIONS AND CONCERNS WERE ADDRESSED. IV ON LEFT HAND 20G KEPT IN PLACE DUE TO PT WILL BE RECEIVING FURTHER IV ANTIBIOTIC THERAPY AT [facility]. TOLENTINO CATHETER ALSO KEPT IN PLACE. G-TUBE IN PLACE. PT STABLE, NO SIGNS OF DISTRESS NOTED. DISCHARGE PHOTOGRAPH OF SACRAL PRESSURE ULCER TAKEN. PT RECEIVED PNEUMONIA VACCINE IN MAY 2017. ALL BELONGINGS TAKEN WITH PATIENT. PT PICKED UP BY [facility] TO BE TAKEN BACK TO [facility].
== END 2018-08-07 15:20 | DRG 870 ==
LOC: MED 16:34 → MTU 18:08
PROVIDERS: ADMIT Internal Medicine; ATTEND Internal Medicine
PROC: 5A1955Z Respiratory Ventilation, Greater than 96 Consecutive Hours (ICD-10-PCS; principal; 2018-08-02)
PROC: 30233N1 Transfusion of Nonautologous Red Blood Cells into Peripheral Vein, Percutaneous Approach (ICD-10-PCS; 2018-08-03)
DX: A41.9 Sepsis, unspecified organism (principal); R53.2 Functional quadriplegia; J15.1 Pneumonia due to Pseudomonas; E43 Unspecified severe protein-calorie malnutrition; K92.2 Gastrointestinal hemorrhage, unspecified; N39.0 Urinary tract infection, site not specified; J96.11 Chronic respiratory failure with hypoxia; Z99.11 Dependence on respirator [ventilator] status; D62 Acute posthemorrhagic anemia; G93.40 Encephalopathy, unspecified; J90 Pleural effusion, not elsewhere classified; D63.1 Anemia in chronic kidney disease; E86.9 Volume depletion, unspecified; E11.22 Type 2 diabetes mellitus with diabetic chronic kidney disease; R13.10 Dysphagia, unspecified; N18.9 Chronic kidney disease, unspecified; I12.9 Hypertensive chronic kidney disease with stage 1 through stage 4 chronic kidney disease, or unspecified chronic kidney disease; G20 Parkinson's disease; F03.90 Unspecified dementia, unspecified severity, without behavioral disturbance, psychotic disturbance, mood disturbance, and anxiety; Z66 Do not resuscitate; B96.5 Pseudomonas (aeruginosa) (mallei) (pseudomallei) as the cause of diseases classified elsewhere; Z86.73 Personal history of transient ischemic attack (TIA), and cerebral infarction without residual deficits; Z88.6 Allergy status to analgesic agent; Z91.013 Allergy to seafood; Z79.4 Long term (current) use of insulin; Z79.899 Other long term (current) drug therapy; Z93.0 Tracheostomy status; Z74.01 Bed confinement status; Z22.322 Carrier or suspected carrier of Methicillin resistant Staphylococcus aureus
CPT/HCPCS: 36415; 71045; 80048; 80053; 81001; 82040; 82247; 82272; 82948; 83605; 83735; 83880; 84100; 84155; 84450; 84460; 84484; 85025; 85610; 86886; 86900; 86901; 86920; 87040; 87070; 87081; 87086; 87186; 87205; 89220; 93005; 94002; 94003; 94640; 96372; 96374; 99285; J0696; J0713; J1200; J1580; J1644; J1815; J2250; J2405; J3010; J3490; J7030; J7042; J7060; J7620; P9016; Q0092

== ENCOUNTER 2018-08-26 23:29 | Emergency (ER) | payer OTHER ==
[~2018-08-26] VITALS: Ht 170.2 cm; Wt 77.6 kg
[~2018-08-26 23:29] MED LIST changes: +GENTAMICIN; +GENTAMICIN IV; +HYDR-4420 PO; -HYDR100T79 PO; +[UNRECOGNIZED DRUG - CODE]
--- NOTE | 2018-08-26 23:30 | NUR ---
PT VENECIA ALS TO ER BED 11
[2018-08-26 23:31] VITALS: BP 125/72
[2018-08-26 23:35] VITALS: BP 125/72
--- NOTE | 2018-08-26 23:40 | NUR ---
FIRST CONTACT WITH PATIENT PATIENT BIBA FROM [facility] FOR UNABLE TO CHANGED URINARY TOLENTINO CATH. PATIENT IS TRACH-VENT PATIENT. VENT SETTINGS ARE PCAC MODE- FIO2 30%, TVOL 450 PEEP 5. RT AT BEDSIDE. PATIENT BREATHING IS EVEN AND UNLABORED, EQUAL RISE AND FALL OF CHEST. PATIENT IS NOTED TO ARRIVE WITH G-TUBE, NO ERYTHEMA NOTED, BLANCHABLE SKIN NOTED. PATIENT CONNECTED TO MECH-VENT. BREATHING IS EVEN AND UNLABORED, EQUAL RISE AND FALL OF CHEST, DR OLIVAS MADE AWARE OF PATIENT, NO ACUTE DISTRESS NOTED, WILL CONTINUE TO MONITOR
--- NOTE | 2018-08-27 | NUR ---
Patient being evaluated by physician at bedside.
[2018-08-27 00:13] LABS: APPEARANCE,URINE CLOUDY (CLEAR); BILIRUBIN,URINE NEGATIVE (NEGATIVE); BLOOD, URINE 2+ (NEGATIVE); COLOR,URINE YELLOW (YELLOW); LEUKOCYTE ESTERASE ,URINE 3+ (NEGATIVE); NITRITE, URINE NEGATIVE (NEGATIVE); UGLUCOSE NEGATIVE (NEGATIVE)
--- NOTE | 2018-08-27 00:14 | NUR ---
[facility] CALLED FOR TRANSPORT BACK TO [facility]. REPORT GIVEN BACK TO AURA GARZA. ETA 60MINS
[2018-08-27 00:31] VITALS: BP 103/57
--- NOTE | 2018-08-27 00:32 | NUR ---
Patient discharged with v/s stable. Written and verbal after care instructions given and explained. Patient verbalized understanding. Ambulance Transport [facility]. All questions addressed prior to discharge. Advised to follow up with PMD.
--- NOTE | 2018-08-27 00:32 | NUR ---
ALL DOCUMENTS GIVEN TO ARM 170. RT AT BEDSIDE.
[2018-08-27 01:01] LABS: RBC,URINE TOO NUMEROUS TO COUN /HPF (0-5); WBC,URINE TOO MANY TO COUNT /HPF (0-5)
== END 2018-08-27 00:32 | disposition home or self-care (01) ==
LOC: MED 23:29
DX: T83.098A Other mechanical complication of other urinary catheter, initial encounter (principal); E11.9 Type 2 diabetes mellitus without complications; F03.90 Unspecified dementia, unspecified severity, without behavioral disturbance, psychotic disturbance, mood disturbance, and anxiety; I10 Essential (primary) hypertension; Z98.890 Other specified postprocedural states; Z79.899 Other long term (current) drug therapy; Z88.5 Allergy status to narcotic agent; Z87.448 Personal history of other diseases of urinary system; Z86.73 Personal history of transient ischemic attack (TIA), and cerebral infarction without residual deficits; Y84.6 Urinary catheterization as the cause of abnormal reaction of the patient, or of later complication, without mention of misadventure at the time of the procedure
CPT/HCPCS: 51702; 81001; 87086; 87186; 99284

== ENCOUNTER 2018-11-23 14:27 | Inpatient (IN) | payer MEDICARE, OTHER ==
[~2018-11-23] VITALS: Ht 170.2 cm; Wt 68.9 kg
[~2018-11-23 14:27] MED LIST changes: -GENTAMICIN; -HUM SUBQ; -PRON INH; -[UNRECOGNIZED DRUG - CODE]
[2018-11-23 14:30] VITALS: BP 113/63
--- NOTE | 2018-11-23 14:30 | NUR ---
PLACED PT ON CARESCAPE SETTINGS PER FACILITY DOCUMENTED, PTS TRACH JAZZY 6 XLT IS SECURE PT IN HF NOT ALERT, SHIPPING CHECKER OBTAINED TAKEN TO LAB,BMV HOB , VENT PLUGGED INTO RED OUTLET
--- NOTE | 2018-11-23 14:45 | NUR ---
PT BIBA C/O HEMATURIA. PER EMS PT HAD HEMATURIA PRESENT IN TOLENTINO BAG, STAFF [place] [facility] [place]EMPTED TO CHANGE TOLENTINO AND WERE UNSUCCESFUL AT INSERTING TOLENTINO. SCROTAL SWELLING PRESENT. PT TEMP 101.6, RR 20, PULSE 106. ER MD NOTIFIED. PT ON TRACH, CONTRACTED, NON-VERBAL. VSS. ER MD MADE AWARE OF OPT CONDITION. MEDHX:DM, HTN, CVA
[2018-11-23] MEDS ORDERED: NACL 0.9% 1,000 ML IV SCH (14:54)
[2018-11-23] MEDS ORDERED: PIPERACILLIN/TAZOBACTAM 3.375 GM in DEXT 5% MINI-BAG PLUS 50 ML IV ONE (14:55)
[2018-11-23] MEDS ORDERED: PIPERACILLIN/TAZOBACTAM 3.375 GM VIAL IV ONE (15:20)
[2018-11-23 15:35] LABS: BASOPHILS % (AUTO) 0.2 % (0.0-2.0); EOSINOPHILS % (AUTO) 0.2 % (0.0-4.0); HEMATOCRIT 28.5 % (36-52); LYMPHOCYTES # (AUTO) 0.8 K/uL (2.0-11.5); LYMPHOCYTES % (AUTO) 5.3 % (20.5-51.1); MEAN CORPUSCULAR HEMOGLOBIN 26 pg (27-31); MEAN CORPUSCULAR HGB CONC 32 g/dL (33-37); MEAN CORPUSCULAR VOLUME 81.6 fL (80-94); MONOCYTES # (AUTO) 0.8 K/uL (0.8-1.0); MONOCYTES % (AUTO) 5.3 % (1.7-9.3); NEUTROPHILS # (AUTO) 14.1 K/uL (1.8-7.7); PLATELET COUNT (AUTO) 213 K/uL (140-450); RED BLOOD CELL COUNT(AUTO) 3.49 MIL/uL (4.20-6.10); RED CELL DISTRIBUTION WIDTH 15.4 % (11.6-13.7); WHITE BLOOD COUNT (AUTO) 15.8 K/uL (4.8-10.8)
[2018-11-23 15:51] LABS: ALBUMIN 2.6 g/dL (3.4-5.0); ANION GAP 14.1 (8-16); ASPARTATE AMINOTRANSFERASE 26 U/L (15-37); CARBON DIOXIDE 24.9 mmol/L (21-32); CHLORIDE 95 mmol/L (98-107); CREATININE 1.5 mg/dL (0.7-1.3); GLUCOSE 94 mg/dL (74-106); SODIUM SERUM 129 mmol/L (136-145); TOTAL BILIRUBIN 0.6 mg/dL (0.0-1.0); UREA NITROGEN, BLOOD 57 mg/dL (7-18)
[2018-11-23 15:55] LABS: PROTHROMBIN TIME 10.4 secs (10.8-13.4)
--- NOTE | 2018-11-23 15:55 | NUR ---
# 14 FR Fernandez catheter with 10 ml utilizing sterile technique. Immediate return of 10 ml BLOODY urine noted. Bedside drainage bag placed below level of bladder. Urine sample collected and sent to lab. Pt tolerated procedure WELL.
[2018-11-23] MEDS ORDERED: NACL 0.9% 500 ML IV ONE (16:00)
[2018-11-23] MEDS ORDERED: diphenhydrAMINE 50 MG/ML VIAL IVP ONE (16:00)
--- NOTE | 2018-11-23 16:00 | NUR ---
PT DEVELOPING HIVES ON BODY ABX STOPPED, ER MD MADE AWARE, PER ER MD CONTINUE ABX, O2 SAT 100%, LUNG SOUNDS CLEAR. PT HAS NOT PROVIDED ENOUGH URINE FOR UA, ER MD MADE AWARE.
[2018-11-23 17:05] VITALS: BP 98/59
--- NOTE | 2018-11-23 17:24 | NUR ---
URINE COLLECTED VIA TOLENTINO
[2018-11-23] MEDS ORDERED: ONDANSETRON 4 MG/2 ML VIAL IVP PRN (17:30)
--- NOTE | 2018-11-23 18:09 | NUR ---
DAUGHTER WOULD LIKE UPDATES CELINE [phone]
[2018-11-23 18:26] LABS: BILIRUBIN,URINE NEGATIVE (NEGATIVE); BLOOD, URINE 3+ (NEGATIVE); LEUKOCYTE ESTERASE ,URINE 3+ (NEGATIVE); NITRITE, URINE NEGATIVE (NEGATIVE); PH,URINE 7.5 (5.0-9.0); UGLUCOSE NEGATIVE (NEGATIVE)
--- NOTE | 2018-11-23 18:35 | NUR ---
pending discharge at this time. waiting for available bed
[2018-11-23 18:36] LABS: APPEARANCE,URINE CLOUDY (CLEAR); COLOR,URINE RED (YELLOW)
[2018-11-23 18:37] LABS: RBC,URINE TOO NUMEROUS TO COUN /HPF (0-5); WBC,URINE TOO MANY TO COUNT /HPF (0-5)
--- NOTE | 2018-11-23 19:04 | NUR ---
AXILLARY TEMP 99.6
--- NOTE | 2018-11-23 19:12 | NUR ---
REPORT GIVEN TO BARNEY GARZA
[2018-11-23 20:25] VITALS: BP 111/49
--- NOTE | 2018-11-23 20:25 | NUR ---
PATIENT TRANSPORTED TO 108B WITHOUT INCIDENT. NO ACUTE RESPIRATORY DISTRESS NOTED. WILL CONTINUE TO MONITOR.
--- NOTE | 2018-11-23 20:25 | NUR ---
RECEIVED BEDSIDE REPORT. PT IS APHASIC. TRACH TO VENT SETTINGS: FIO2 28%, VT 450, RR 16 PEEP 5. LUNG SOUNDS ARE CLEAR. C/C HEMATURIA. TOLENTINO INSERTED IN ER 14FR DRAINING BRIGHT RED BLOOD. BOWEL SOUNDS ACTIVE, G TUBE, SKIN IS INTACT. IV ON L HAND 20SL. SCROTUM IS SWOLLEN, NO ISOLATION. COMING FROM [facility], VS: 111/49 HR 91 94% RR 16, FLACC 0 97.9.MRSA SWAB OBTAINED. SAFETY MEASURES ARE IN PLACE. HOB ELEVATED. SUCTION SET UP. WILL ROUND FREQUENTLY.
--- NOTE | 2018-11-23 20:25 | NUR ---
PT ADMITTED TO [facility] RM 108B. TRANSFERRED PT VIA [facility] WITH KIA BRADLEY, LAURO EMT. REPORT GIVEN TO YANCI GARZA. PT CARE TRANSFERRED TO RECEIVING RN.
--- NOTE | 2018-11-23 21:00 | NUR ---
PT NOW WITH YELLOW GOWN, CLEAN AND REPOSITION FOR COMFORT. HOB ELEVATED. SAFETY MEASURES ARE IN PLACE.
--- NOTE | 2018-11-23 21:24 | NUR ---
VENT CHECK DONE. ALARMS ON AND AUDIBLE. VENT PLUGGED INTO CORRECT OUTLET WITH WHEELS LOCKED. AMBU BAG AT BEDSIDE. NO ACUTE RESPIRATORY DISTRESS NOTED AT THIS TIME. WILL CONTINUE TO MONITOR.
--- NOTE | 2018-11-23 21:25 | NUR ---
PER DR OREILLY OK TO HOLD HEPARIN D/T HEMATURIA. TOLENTINO CATH STILL DRAINING BRIGHT RED BLOOD.
--- NOTE | 2018-11-23 21:35 | NUR ---
SPOKE WITH PT'S DAUGHTER CELINECHRIS REYESENZO GAVE DAUGHTER UP DATE. PT IS IN STABLE CONDITION. PER DAUGHTER WILL COME TO VISIT TOMORROW.
[2018-11-23] MEDS ORDERED: FLEPED RC (22:02)
[2018-11-23] MEDS ORDERED: FERR75LI22 PO (22:02)
[2018-11-23] MEDS ORDERED: BISA-213 RC (22:02)
--- NOTE | 2018-11-23 23:00 | NUR ---
PROVIDED ORAL CARE. PT TOLERATED WELL. ALL NEEDS MET AT THIS TIME. WILL CONTINUE TO MONITOR.
[2018-11-23] MEDS ORDERED: BISACODYL 10 MG SUPP RC PRN (23:05)
[2018-11-23] MEDS ORDERED: SODIUM PHOSPHATE PEDIATRIC 67.5 ML ENEM RC SCH (23:05)
[2018-11-23] MEDS ORDERED: cloNIDine 0.1 MG TAB GT PRN (23:05)
[2018-11-23] MEDS ORDERED: cefTRIAXone 1,000 MG VIAL ONE (23:08)
[2018-11-24] VITALS (9 sets, daily range): BP systolic 115–154; BP diastolic 46–95
[2018-11-24] MEDS ORDERED: PIPERACILLIN/TAZOBACTAM 2.25 GM in DEXTROSE 5% 50 ML IV SCH ×2
--- NOTE | 2018-11-24 00:30 | NUR ---
VITAL SIGNS ARE WITHIN NORMAL LIMITS. TEMP 99.1 COOLING ME[address]URES ARE IN PLACE. REMOVED BLANKET AND INCREASED AC. WILL CONTINUE TO MONITOR.
--- NOTE | 2018-11-24 01:00 | NUR ---
STARTED G TUBE FEEDINGS JEVITY 1.2 AT 75M/H FWF 175ML/Q6H. PT WITH 70 CC WATERY DARK BROWN RESIDUAL. DR ASHBY MADE AWARE PER DR ELLISON TO START FEEING. WILL CONTINUE TO MONITOR.
--- NOTE | 2018-11-24 02:15 | NUR ---
PAGED RT REGARDING PT DESAT TO HIGH 70'S FOR 1-2 SECOND THEN BACK TO 100% PT WITH THIS EPISODE X2. RT KIA IS AT BEDSIDE. RR 33 SAT 100% HR 108 122/85. URINE IS STARTING TO CLEAR UP DRAINING CLOUDY YELLOW URINE.
[2018-11-24] MEDS ORDERED: ALBUTEROL SULFATE/IPRATROPIU 3 ML SOL IH PRN (02:20)
[2018-11-24] MEDS: ACETAMINOPHEN 325 MG TAB GT PRN (02:22)
[2018-11-24] MEDS ORDERED: ALBUTEROL SULFATE/IPRATROPIU 3 ML SOL IH ONE (02:25)
[2018-11-24] MEDS ORDERED: LORazepam 2 MG/ML VIAL IM/IVP PRN (02:25)
[2018-11-24] MEDS: BENZTROPINE 1 MG TAB GT SCH ×3 (04:26→21:00)
--- NOTE | 2018-11-24 04:26 | NUR ---
VS:137/65 HR 95 RR 22, FLACC 0 TRACH TO VENT SAT 100%, TEMP 100.[address] REMOVED BLANKET, AC HIGH AND WET WASH CLOTH ON FOREHEAD. WILL CONTINUE TO MONITOR Addendum: 11/24/18 at 0438 by Diana Jesus RN GILBERTO CONGENTIN GIVEN VIA G TUBE PT WITH 40 CC RESIDUAL. UNABLE TO ADMINISTER REQUIP 4MG AND SODIUM CHLORIDE 1GM UNAVAILABLE. SENIOR RISK MANAGER MADE AWARE. ALL SAFETY MEASURES ARE IN PLACE. WILL CONTINUE TO MONITOR.
[2018-11-24] MEDS: rOPINIRole 1 MG TAB GT SCH ×3 (04:27→21:00)
[2018-11-24] MEDS: SODIUM CHLORIDE 1 GM TAB GT SCH ×3 (04:27→21:00)
--- NOTE | 2018-11-24 06:20 | NUR ---
PT TRANSFERRED TO ICU BED 7 REPORT GIVEN TO LAURENT GARZA. PT TOLERATED WELL NO RESPIRATORY DISTRESS. BACK ON VENT SETTINGS. PT ENDORSED IN STABLE CONDITION.
--- NOTE | 2018-11-24 06:20 | NUR ---
RECEIVED TRANSFER REPORT FROM [facility] NURSE CARIN. PATIENT IS ON STANDARD PRECAUTIONS, ALLERGIES TO SEAFOOD, NSAIDS, HYDROCODONE,AND POSSIBLY ZOSIN (GOT RASH FROM IT IN THE ER). PATIENT IS DNR CODE STATUS. HE IS NOT ALERT AND ORIENTED AND IS APHASIC. TRACH TO VENT WITH SETTINGS: FIO2 28%, AC 16, VT 450, FLOW 40 L/MIN, AND PEEP 5. PERRL IS PRESENT WITH PUPILS BILATERAL SIZE 3MM AND REACTION IS SLUGGISH. SKIN IS WARM, DRY, AND INTACT THROUGHOUT. PULSES 2+ BILATERAL UPPER AND LOWER EXTREMITIES. LUNG SOUNDS ARE CLEAR THROUGHOUT. 1ST AV BLOCK SAMPLE PREP TECHNICIAN. S1 AND S2 SOUND PRESENT. PATIENT HAS A LEFT HAND 20 GAUGE PATENT PERIPHERAL IV LINE WITH SITE/DRESSING DRY AND INTACT TKO WITH NS AT 5ML/H. PATIENT HAS ACTIVE BOWEL SOUNDS IN ALL QUADRANTS AND LAST BM WAS ON THIS SHIFT (BROWN, SOFT, AND MODERATE AMOUNT). TOLENTINO CATHETER IN PLACE. BED LEFT IN LOW SEMI FOWLERS POSITION, SIDE RAILS UPX2 WITH CALL LIGHT WITHIN REACH. WILL CONTINUE TO MONITOR.
[2018-11-24] MEDS: ALBUTEROL SULFATE/IPRATROPIU 3 ML SOL IH SCH ×3 (07:06→19:57)
--- NOTE | 2018-11-24 07:07 | NUR ---
RECEIVED PATIENT ON CURRENT SETTINGS: AC 450 RATE 16 PEEP 5 FIO2 28%. PATIENT IS TRACH'D WITH A SHILEY 6 XLT THAT IS SECURE WITH TRACH TIES. STOMA AREA IS CLEAN, DRY AND INTACT. PATIENT IS QUIET THEN SLEEPING. B/S: COARSE IN THE UPPER LOBES AND CLEAR IN THE BASES. DID NOT SUCTION PATIENT. DUONEB TREATMENT GIVEN INLINE WITH NO ADVERSE EFFECTS. VENT AND ALARM SETTINGS VERIFIED. WILL CONTINUE TO MONITOR.
--- NOTE | 2018-11-24 07:30 | NUR ---
RECEIVED BEDSIDE REPORT FROM ASSISTANT AUTO CENTER MANAGER NURSE, PT OPEN EYES ONLY, APHASIC, UNABLE TO FOLLOW COMMANDS, VSS, FLACC 0, TRACH TO VENT WITH AC FIO2 28, VT 450, R 16, PEEP 5, NO S/S OF DISTRESS, DIMINISHED LUNG SOUNDS ZUNILDA. 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 HOB ELEVATED TO 30 DEGREES, ORAL CARE PROVIDED, POSITION CHANGED FOR OFF LOAD PRESSURE, SAFETY MEASURE IN PLACE, WILL CONTINUE TO MONITOR.
--- NOTE | 2018-11-24 08:28 | NUR ---
PATIENT HAS BEEN SCREENED AND CATEGORIZED HIGH NUTRITION RISK. PATIENT WILL BE SEEN WITHIN 1-2 DAYS OF ADMISSION. 11/24/18-11/25/[address]
[2018-11-24] MEDS: FERROUS SULFATE 300 MG/5 ML UDC GT SCH (09:24)
[2018-11-24] MEDS: hydrALAZINE 25 MG TAB PO SCH ×3 (09:24→17:04)
[2018-11-24] MEDS: CARBIDOPA/LEVODOPA 25/100 MG 1 TAB GT SCH ×3 (09:24→17:04)
[2018-11-24] MEDS: FAMOTIDINE 20 MG TAB GT SCH (09:24)
--- NOTE | 2018-11-24 09:30 | NUR ---
SCHEDULED MEDICATION GIVEN, PATIENT TOLERATED WELL.
[2018-11-24 09:56] LABS: EOSINOPHILS # (AUTO) 0.2 K/uL (0-0.4); EOSINOPHILS % (AUTO) 1.2 % (0.0-4.0); MEAN CORPUSCULAR HEMOGLOBIN 26 pg (27-31); WHITE BLOOD COUNT (AUTO) 17.1 K/uL (4.8-10.8)
--- NOTE | 2018-11-24 10:00 | NUR ---
NO S/S OF DISTRESS, VSS, FLACC 0, POSITION CHANGED FOR OFF LOAD PRESSURE.
[2018-11-24 10:01] LABS: BASOPHILS % (AUTO) 0.2 % (0.0-2.0); HEMATOCRIT 31.5 % (36-52); HEMOGLOBIN 9.9 g/dL (12.0-18.0); LYMPHOCYTES % (AUTO) 11.9 % (20.5-51.1); MEAN CORPUSCULAR HGB CONC 31 g/dL (33-37); MEAN CORPUSCULAR VOLUME 82.9 fL (80-94); MONOCYTES # (AUTO) 1.3 K/uL (0.8-1.0); MONOCYTES % (AUTO) 7.4 % (1.7-9.3); NEUTROPHILS # (AUTO) 13.5 K/uL (1.8-7.7); NEUTROPHILS % (AUTO) 79.3 % (42.2-75.2); PLATELET COUNT (AUTO) 204 K/uL (140-450); RED CELL DISTRIBUTION WIDTH 15.2 % (11.6-13.7)
[2018-11-24 10:11] LABS: ANION GAP 12.1 (8-16); CARBON DIOXIDE 24.4 mmol/L (21-32); CHLORIDE 98 mmol/L (98-107); CREATININE 1.5 mg/dL (0.7-1.3); GLUCOSE 115 mg/dL (74-106); POTASSIUM 4.5 mmol/L (3.5-5.1); SODIUM SERUM 130 mmol/L (136-145); UREA NITROGEN, BLOOD 53 mg/dL (7-18)
[2018-11-24 10:36] LABS: MAGNESIUM 2.3 mg/dL (1.8-2.4); PHOSPHORUS 3.2 mg/dL (2.5-4.9)
[2018-11-24 10:37] LABS: CHOL/HDL RATIO 2.8 (1-4.5)
--- NOTE | 2018-11-24 11:27 | NUR ---
ROUTINE VENT CHECK AND PATIENT ASSESSMENT. AIRWAY IS PATENT. COLLECTED SPUTUM SAMPLE.
--- NOTE | 2018-11-24 11:45 | NUR ---
PER DR. SCHAFFER, PT'S TOLENTINO CATHETER NEEDS TO PUSH IN MORE, DEFLATED, REINSERTED TOLENTINO CATHETER, SMALL AMOUNT OF BRIGHT RED BLEEDING NOTED WHEN INFLATING 10 CC OF WATER, DR. SCHAFFER MADE AWARE, NO NEW ORDER AT THIS TIME.
--- NOTE | 2018-11-24 12:00 | NUR ---
NO CHANGE OF CONDITION, VSS, FLACC 0, ORAL CARE PROVIDED, POSITION CHANGED FOR OFF LOAD PRESSURE.
[2018-11-24] MEDS ORDERED: INSULIN LISPRO SLIDING SCALE 100 UNITS/ML VIAL SUBQ PRN (12:15)
[2018-11-24] MEDS ORDERED: DEXTROSE 50% 50 ML SYR IVP PRN (12:15)
--- NOTE | 2018-11-24 13:23 | NUR ---
SCREEN FOR LOW SCOTTY SCALE AT RISK, CONTINUE TO FOLLOW PRESSURE ULCER PREVENTION INTERVENTIONS. -TURN AND REPOSITION PATIENT Q 2H -ASSESS AND MONITOR SKIN CONDITION DURING POSITION CHANGE -OFFLOAD BILATERAL HEELS BY PLACING PILLOWS UNDER CALVES AT ALL TIMES, UNLESS OTHERWISE CONTRAINDICATED -PRESSURE REDISTRIBUTION BY PLACING PILLOWS AND OFFLOADING SACRALCOCCYX -KEEP SKIN CLEAN AND DRY AT ALL TIMES.
--- NOTE | 2018-11-24 13:55 | NUR ---
CONTACTED MCMANUS AT [phone], ABLE TO SPEAK TO CAT (PRODUCTION TECH), UPDATED HER OF PATIENT'S CONDITION. SHE STATED THAT CM IN CHARGE OF THIS PATIENT IS YA AND JIMY IS ASSISTING HIM. ASKED TO BE TRANSFERRED TO , SHE STATED THEY ARE WORKING WITH A PATIENT RIGHT NOW. PROVIDED ME WITH [phone] TO SEND CLINICALS. REQUESTED TO GET A CALL BACK. PROVIDED HER OF MY CONTACT INFO. CLINICALS SENT TO THE PROVIDED FAX NUMBER.
--- NOTE | 2018-11-24 14:00 | NUR ---
NO S/S OF DISTRESS, VSS, FLACC 0, POSITION CHANGED FOR OFF LOAD PRESSURE.
--- NOTE | 2018-11-24 14:20 | NUR ---
CONTACTED MARIETTA AGAIN, ABLE TO SPEAK TO IVON. INFORMED HER THAT THE NUMBER CAT PROVIDED ME EARLIER IS NO RESPONSE AND THE SECOND ONE IS BUSY. I ASKED HER IF THERE IS ANY FAX NUMBER THAT I CAN SEND CLINICALS. SHE PROVIDED ME WITH [phone], AND [phone]. CLINICAL SENT TO PROVIDED NUMBERS.
--- NOTE | 2018-11-24 15:14 | NUR ---
Insurance Application Investigator Note: I received a call from patient's daughter Melissa Gómez , she stated she would like patient to return to [facility] or to [facility] upon discharge. She reported she was not aware patient was transferred to ICU, I apologized and told her I will relay this to Director of TERRY Perdomo. Melissa asked me if she could contact me if she had any questions or concerns, I told her she could. I informed Director Perdomo of Melissa's concern.
--- NOTE | 2018-11-24 16:00 | NUR ---
TEMP 99.8F, COOLING MEASURE IN USE, ORAL CARE AND F/C CARE PROVIDED, PM CARE AND MILDRED CARE DONE, POSITION CHANGED FOR OFF LOAD PRESSURE.
--- NOTE | 2018-11-24 16:12 | NUR ---
11/24/18 RD INITIAL ASSESSMENT COMPLETED PLEASE REFER TO NUTRITION ASSESSMENT UNDER CARE ACTIVITY FOR ESTIMATED NUTRITIONAL NEEDS. 1. CONTINUE JEVITY @ 75 ML/HR X 24HR -THIS WILL PROVIDE 1800 ML, 2160 KCAL, AND 100 GM OF PROTEIN 2. CONTINUE FWF OF [address] TO FOLLOW-UP 2-3 DAYS, HIGH RISK MERLY SALCEDO RD
[2018-11-24] MEDS: BLOOD GLUCOSE MONITORING 1 DEV DEV FS SCH ×2 (16:48→21:00)
--- NOTE | 2018-11-24 17:57 | NUR ---
COMPLETED TRACH CARE WITH NO INCIDENT. PATIENT ASLEEP AND UNABLE TO COMPREHEND CARE. CHANGED INNER CANNULA, GAUZE DRESSING AND HME. STOMA AREA HAS SMALL, CLEAR AND YELLOW DRAINAGE BUT APPEARS CLEAN AND HEALTHY.
--- NOTE | 2018-11-24 18:00 | NUR ---
NO CHANGE OF CONDITIONS, VSS, FLACC 0, POSITION CHANGED FOR OFF LOAD PRESSURE.
--- NOTE | 2018-11-24 18:30 | NUR ---
PT'S FAMILY MEMBERS CAME IN TO SEE PATIENT, UPDATED PATIENT'S CONDITION, SATISFACTIONS OBTAINED AT THIS TIME.
--- NOTE | 2018-11-24 18:36 | NUR ---
DR. WEST CAME IN TO SEE PATIENT AT BEDSIDE, WILL FOLLOW UP WITH NEW ORDERS.
[2018-11-24] MEDS: NACL 0.9% 1,000 ML IV SCH (18:47)
--- NOTE | 2018-11-24 19:23 | NUR ---
REPORT GIVEN TO CARBON CAPTURE POWER PLANT MANAGER NURSE AT BEDSIDE FOR CONTINUE OF CARE, PT IS IN STABLE CONDITION AT THIS TIME, VSS, FLACC 0, NO S/S OF DISTRESS.
--- NOTE | 2018-11-24 20:00 | NUR ---
PT AWAKE, EYES OPEN, NON VERBAL RESPONDING TO PAINFUL STIMULI. CONTRACTURES. 1 DEGREE HEART BLOCK NOTED, PALPABLE PULSES, +1 BILAT RADIAL AND PEDAL PULSES. TRACH TO VENT @ 28% FIO2 R 16 TV 500 PEEP 5. PEG TUBE IN PLACE WITH JEVITY TUBE FEEDING RUNNING. TOLENTINO CATH IN PLACE, MAGNUS URINE NOTED. SKIN INTACT, MILDRED REDNESS/SCROTAL REDNESS NOTED. SIDE RAILS UP X4. BED LOCKED IN LOWEST POSITION.
[2018-11-24] MEDS ORDERED: LEVOFLOXACIN 500 MG/D5W PREMIX 100 ML IV SCH (21:20)
[2018-11-24] MEDS: LINEZOLID 600MG PREMIX 300 ML IV SCH (22:30)
[2018-11-25] VITALS (16 sets, daily range): BP systolic 97–174; BP diastolic 57–113
--- NOTE | 2018-11-25 | NUR ---
TOLENTINO CATH LEAKING URINE FROM PENIS, SCROTUM SWOLLEN. MD MADE AWARE, NEW ORDER TO BLADDER SCAN AND TO INSERT 3 WAY TOLENTINO AND BLADDER IRRIGATION.
--- NOTE | 2018-11-25 00:45 | NUR ---
550 ML AFTER BLADDER SCAN, 3 WAY TOLENTINO INSERTED WITH BLADDER IRRIGATION DONE, FLASH OF RED DRAINAGE THROUGH TOLENTINO NOTED. MD MADE AWARE. WILL CONTINUE TO OBSERVE.
[2018-11-25] MEDS ORDERED: LIDOCAINE JELLY 2% 30 ML TUBE TP SCH (00:50)
[2018-11-25] MEDS ORDERED: MORPHINE SULFATE 4 MG/ML SYR IVP SCH (02:15)
--- NOTE | 2018-11-25 02:25 | NUR ---
LEFT WITH PT TO CT , ZAKI, RETURN AT 0255, WITHOUT ANY PROBLEMS, PLACED PT ON THE VENT AND VENT CK DONE, SAT 98%.
--- NOTE | 2018-11-25 03:00 | NUR ---
PT TAKEN TO CT
--- NOTE | 2018-11-25 03:35 | NUR ---
PT RETURNED FROM CT, NO ACUTE DISTRESS NOTED.
[2018-11-25] MEDS: rOPINIRole 1 MG TAB GT SCH ×2 (05:00→13:15)
[2018-11-25] MEDS: SODIUM CHLORIDE 1 GM TAB GT SCH ×2 (05:00→13:15)
[2018-11-25] MEDS: BENZTROPINE 1 MG TAB GT SCH ×2 (05:00→13:30)
[2018-11-25] MEDS: ALBUTEROL SULFATE/IPRATROPIU 3 ML SOL IH SCH ×3 (06:55→19:09)
--- NOTE | 2018-11-25 07:10 | NUR ---
RECIVED PT ON VENT WITH SETTINGS CHARTED BREATH SOUNDS PRESENT BILAT RALES SXN PT WITH MIN TO MODERATE SECS OFF WHITE TRACH SITE SECURE AMBU BAG AT BEDSIDE VENT PLUGGED INTO RED OUTLET WILL CONTINUE TO MONITOR PT ON VENT
[2018-11-25 07:21] LABS: BASOPHILS % (AUTO) 0.1 % (0.0-2.0); EOSINOPHILS # (AUTO) 0.1 K/uL (0-0.4); EOSINOPHILS % (AUTO) 0.6 % (0.0-4.0); HEMATOCRIT 28.1 % (36-52); HEMOGLOBIN 8.9 g/dL (12.0-18.0); LYMPHOCYTES # (AUTO) 1.2 K/uL (2.0-11.5); LYMPHOCYTES % (AUTO) 7.5 % (20.5-51.1); MEAN CORPUSCULAR HEMOGLOBIN 26 pg (27-31); MEAN CORPUSCULAR HGB CONC 32 g/dL (33-37); MEAN CORPUSCULAR VOLUME 82.3 fL (80-94); MONOCYTES % (AUTO) 6.1 % (1.7-9.3); NEUTROPHILS # (AUTO) 13.7 K/uL (1.8-7.7); NEUTROPHILS % (AUTO) 85.7 % (42.2-75.2); PLATELET COUNT (AUTO) 214 K/uL (140-450); RED BLOOD CELL COUNT(AUTO) 3.41 MIL/uL (4.20-6.10); RED CELL DISTRIBUTION WIDTH 15.6 % (11.6-13.7)
--- NOTE | 2018-11-25 07:35 | NUR ---
RECEIVED BEDSIDE REPORT FROM BINGO CLERK NURSE, NANO. PT IN BED, APHASIC, OPEN EYES SPONTANEOUSLY, UNABLE TO FOLLOW COMMANDS, FLACC 0. TRACH TO VENT WITH AC/VC FIO2 28%, VT 450, R 16, PEEP 5. NO S/S OF DISTRESS AT THIS TIME, DIMINISHED LUNG SOUNDS. 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 WATER FLUSH 175ML Q6H. TOLENTINO CATHETER IN PLACE WITH YELLOW URINE AND BLOOD CLOTS. ON BLADDER IRRIGATION. SCROTUM IS RED. SKIN IS INTACT, WARM AND DRY TO TOUCH. PER NIGHT RN, TOLENTINO 16 FR WAS INSERTED LAST NIGHT, PREVIOUS TOLENTINO WAS PROBABLY IN THE URETHRA. IV LINE TO LEFT HAND 20GA, PATENT, INTACT AND ASYMPTOMATIC. HOB ELEVATED TO 30 DEGREES, SAFETY MEASURE IN PLACE, WILL CONTINUE TO MONITOR.
--- NOTE | 2018-11-25 07:45 | NUR ---
REPORT GIVEN TO DAY SHIFT FOR CONTINUITY OF CARE.
[2018-11-25 07:55] LABS: ANION GAP 13.7 (8-16); CARBON DIOXIDE 24.5 mmol/L (21-32); CHLORIDE 100 mmol/L (98-107); CREATININE 1.5 mg/dL (0.7-1.3); GLUCOSE 102 mg/dL (74-106); POTASSIUM 5.2 mmol/L (3.5-5.1); SODIUM SERUM 133 mmol/L (136-145); UREA NITROGEN, BLOOD 49 mg/dL (7-18)
[2018-11-25 08:03] LABS: MAGNESIUM 2.1 mg/dL (1.8-2.4); PHOSPHORUS 3.2 mg/dL (2.5-4.9)
[2018-11-25] MEDS: BLOOD GLUCOSE MONITORING 1 DEV DEV FS SCH ×3 (08:04→17:19)
--- NOTE | 2018-11-25 08:05 | NUR ---
DR AMADOR CAME WITH DR PENA FOR AM ROUNDING. MADE DR AMADOR AWARE OF THE CT ABD/PELVIS RESULT.
--- NOTE | 2018-11-25 08:20 | NUR ---
DR AMADOR SAID SHE HAS CONTACTED UROLOGIST, DR BANEGAS.
[2018-11-25] MEDS: FERROUS SULFATE 300 MG/5 ML UDC GT SCH (08:22)
[2018-11-25] MEDS: CARBIDOPA/LEVODOPA 25/100 MG 1 TAB GT SCH ×3 (08:23→17:11)
[2018-11-25] MEDS: FAMOTIDINE 20 MG TAB GT SCH (08:23)
[2018-11-25] MEDS: hydrALAZINE 25 MG TAB PO SCH ×3 (08:23→17:10)
[2018-11-25] MEDS: ACETAMINOPHEN 325 MG TAB GT PRN (08:57)
[2018-11-25] MEDS ORDERED: CLINICAL MONITORING MC PRN (09:00)
[2018-11-25] MEDS ORDERED: PANTOPRAZOLE 40 MG INJ VIAL IVP SCH (09:00)
--- NOTE | 2018-11-25 09:10 | NUR ---
CONTACTED MCMANUS AT [phone], ABLE TO SPEAK TO OLY. UPDATED HER OF PATIENT'S CONDITION. SHE REQUESTED FOR UPDATED CLINICALS TO BE FAXED TO [phone]. WILL FOLLOW UP. Addendum: 11/25/18 at 0915 by Carolyn Larson CM UPDATED CLINICALS FAXED TO THE PROVIDED NUMBER.
[2018-11-25] MEDS: LINEZOLID 600MG PREMIX 300 ML IV SCH (10:15)
[2018-11-25] MEDS: NACL 0.9% 1,000 ML IV SCH (10:15)
--- NOTE | 2018-11-25 12:00 | NUR ---
DR WEST AND DR AMADOR ARE HERE. MADE THEM AWARE THAT I DEFLATED THE BALLOON AND ADVANCED THE TOLENTINO CATH BY ABOUT 15CM AND RESISTANCE WAS FELT WHEN REINFLATING THE BALLOON. SO I DEFLATED AND PULL BACK. TRIED TO INFLATED AT MULTIPLE DISTANCES. THE ONLY PLACE I WAS ABLE TO INFLATED THE BALLOON WITHOUT RESISTANCE WAS AT THE OLD LOCATION. ASKED DR WEST, IF IRRIGATION SHOULD BE CONTINUE OR STOP. DR WEST SAID YOU CAN STOP THAT FOR NOW.
[2018-11-25] MEDS ORDERED: VANCOMYCIN PER PHARMACY MC PRN (14:10)
--- NOTE | 2018-11-25 15:48 | NUR ---
CONTACTED VAN ALSTYNE AT [phone], ABLE TO SPEAK TO GERARDO (TIRE BLADDER MAKER). SHE STATED THAT PER THEIR DOCTOR DR. URRUTIA THEY NEED TRANSFER ORDER. DR. SCHAFFER MADE AWARE. ORDER TO TRANSFER FAXED OVER TO VAN ALSTYNE AT [phone]. WILL FOLLOW UP. Addendum: 11/25/18 at 1600 by Carolyn Larson CM PROVIDED HER THE UNIT AND COUNTER CUTTER'S NUMBER TO CALL IF BED IS AVAILABLE.
--- NOTE | 2018-11-25 16:36 | NUR ---
RECEIVED A CALL FROM ORLANDO ALVARADO FROM [place], UPDATED HER OF THE PATIENT'S CONDITION. SHE CONFIRMED THAT SHE RECEIVED THE TRANSFER ORDER. SHE STATED SHE WILL DISCUSS WITH HER FINANCIAL AID OFFICER YA AND WILL LET US KNOW IF BED IS AVAILABLE. PROVIDED HER WITH THE UNIT AND EYEGLASS CUTTER'S NUMBER.
--- NOTE | 2018-11-25 17:31 | NUR ---
CONTINUED TO MONITOR PT ON VENT WITH SETTINGS CHQARTED BREATH SOUNDS PRESENT BILAT WITH RHONCHI SXN PT WITH MIN TO MOD AMT OFF WHITE SECS PRN RX GIVEN ORDERED PT WITH INCREASED RR AMBU BAG AT BEDSIDE VENT PLUGGED INTO RED OUTLET
--- NOTE | 2018-11-25 17:40 | NUR ---
RECEIVED A CALL [employer]. MEDICAL INFORMATION PROVIDED FOR INTAKE EVALUATION.
[2018-11-25] MEDS ORDERED: LINE600I6 IV (18:03)
[2018-11-25] MEDS ORDERED: LEVO750T2 PO (18:04)
--- NOTE | 2018-11-25 18:05 | NUR ---
PT'S FAMILY AND DAUGHTER CAME, AGREES WITH THE TRANSFER. CONSENT SIGNED.
--- NOTE | 2018-11-25 19:10 | NUR ---
RECEIVED REPORT FROM DAYSHIFT NURSE AT PATIENTS BEDSIDE, NO DISTRESS NOTED AT THIS TIME, WILL FOLLOWUP CARE.
--- NOTE | 2018-11-25 19:40 | NUR ---
PATIENT IN BED, RESTING, EYES CLOSED, CANNOT RESPOND TO VOICE/LIGHT PAIN, CANNOT MAKE NEEDS KNOWN OR FOLLOW SIMPLE COMMANDS, ANOx0, PERRL SLUGGISH 3MM. TRACH TO VENT, ACVC SETTINGS FI02 28%, TV 450, RATE 16, PEEP 5. LUNG SOUNDS RHONCHI IN UPPER LOBES, SLIGHTLY DIMINISHED IN LOWER LOBES. S1S2, SINUS TACH ON MONITOR. SKIN WARM AND DRY, TEMP 97.9, HR 104, [id number]%, RR-12, BP-144/79. LEFT HAND PERIPHERAL IV 20G, FLUSHED, PATENT, ASYMPTOMATIC. INFUSING NS @75ML/HR. GTUBE IN PLACE, CONNECTED TO FEEDING JEVITY 1.2 @75 ML/HR. ABDOMEN SOFT AND NONTENDER, BOWEL SOUNDS HYPOACTIVE. TOLENTINO CATHETER IN PLACE, BLOOD TRACE NOTED IN BAG. SCROTUM BRIGHT RED IN COLOR AND EDEMATOUS, NONPITTING. SKIN INTACT, BILATERAL UPPER AND LOWER EXTREMITIES CONTRACTED. SIDERAILS UP, BED LOCKED AND IN LOW POSITION, HOB 30 DEGREES. FLACC 0. WILL CONTINUE TO MONITOR
--- NOTE | 2018-11-25 19:45 | NUR ---
CALLED [facility] FOR REPORT [phone]. REPORT GIVEN TO
--- NOTE | 2018-11-25 19:55 | NUR ---
TRANSPORT TEAM HERE TO TRANSFER PATIENT TO [facility]. GTUBE FEEDING DISCONNECTED, PORT CLOSED OFF TO PATIENT,BLADDER IRRIGATION LINES/BAGS REMOVED, TOLENTINO STILL IN PLACE.COLLECTION BAG EMPTIED. IV FLUIDS DISCONNECTED, PERIPHERAL IV SITE STILL IN PLACE, PATIENTS ONLY IV ACCESS-LEFT HAND 20G. ALL BELONGINGS, DISCHARGE PAPERWORK-CD, AND REPORT HANDED OFF TO [facility].
--- NOTE | 2018-11-25 20:18 | NUR ---
PATIENT OFF UNIT, TRANSFER TO [facility] VIA [facility]. SIGNED OFF WITH TRANSPORT-[facility]
[2018-11-25] MEDS ORDERED: LEVOFLOXACIN 250 MG/D5 PREMIX 50 ML IV SCH (22:00)
--- NOTE | 2018-11-26 11:17 | NUR ---
Late entry. COnfirmed with RN that 1000ml 0.9 NS IV completed at 1600
== END 2018-11-25 20:27 | disposition short-term general hospital (02) | DRG 871 ==
LOC: MED 14:27 → MTU 17:39 → MIC 11-24 06:00
PROVIDERS: ADMIT General Practice; ATTEND General Practice
PROC: 5A1945Z Respiratory Ventilation, 24-96 Consecutive Hours (ICD-10-PCS; principal; 2018-11-23)
DX: A41.9 Sepsis, unspecified organism (principal); J96.21 Acute and chronic respiratory failure with hypoxia; N17.0 Acute kidney failure with tubular necrosis; R53.2 Functional quadriplegia; E43 Unspecified severe protein-calorie malnutrition; Z99.11 Dependence on respirator [ventilator] status; N13.6 Pyonephrosis; E87.1 Hypo-osmolality and hyponatremia; N49.3 Fournier gangrene; R31.9 Hematuria, unspecified; Z68.23 Body mass index [BMI] 23.0-23.9, adult; D64.9 Anemia, unspecified; E11.22 Type 2 diabetes mellitus with diabetic chronic kidney disease; F79 Unspecified intellectual disabilities; G20 Parkinson's disease; I12.9 Hypertensive chronic kidney disease with stage 1 through stage 4 chronic kidney disease, or unspecified chronic kidney disease; N18.9 Chronic kidney disease, unspecified; Z66 Do not resuscitate; N49.2 Inflammatory disorders of scrotum; E87.5 Hyperkalemia; R13.10 Dysphagia, unspecified; Z85.118 Personal history of other malignant neoplasm of bronchus and lung; Z86.73 Personal history of transient ischemic attack (TIA), and cerebral infarction without residual deficits; Z90.2 Acquired absence of lung [part of]; Z87.891 Personal history of nicotine dependence; Z93.0 Tracheostomy status; Z88.8 Allergy status to other drugs, medicaments and biological substances; Z91.013 Allergy to seafood; Z79.899 Other long term (current) drug therapy
CPT/HCPCS: 36415; 36600; 71045; 76770; 76870; 80048; 80053; 81001; 82550; 82803; 82948; 83036; 83605; 83735; 83880; 84100; 84439; 84443; 84484; 85025; 85610; 85730; 87040; 87070; 87081; 87086; 87186; 87205; 89220; 93005; 94002; 94003; 94640; 96361; 96365; 96375; 99291; C9113; J0696; J0713; J1200; J1956; J2020; J2060; J2270; J2543; J7030; J7060; J7620; Q0092